=== PATIENT | female | born 1955 | race African-American/Black ===

== ENCOUNTER → 2016-07-02 | Outpatient (CLI) | payer BC ==
[~2016-07-02] MED LIST: ASPIRIN PO; CALC-25 PO; DILT60TA3 PO; LACT1CAP68 PO; LOSA50TA20 PO; MULTIVITAMIN; SIMV40TA5 PO; UMEC1DIS IH
[2016-07-02 08:06] LABS: HEMATOCRIT. 36.6 % (36.0-48.0); HEMOGLOBIN. 11.9 g/dL (12.0-16.0); MEAN CORPUSCULAR HEMOGLOBIN 29.2 pg (28.0-32.0); MEAN CORPUSCULAR HGB CONC 32.6 g/dL (31.0-37.0); MEAN CORPUSCULAR VOLUME 89.7 fL (81.0-99.0); PLATELET 230 x1000/uL (130-400); RED BLOOD CELL COUNT 4.08 mill/uL (4.2-5.4); RED CELL DISTRIBUTION WIDTH 15.3 % (11.6-14.6); WHITE BLOOD COUNT 4.3 x1000/uL (4.5-11.0)
[2016-07-02 08:07] LABS: DIFFERENTIAL COMMENT 1
[2016-07-02 08:31] LABS: ALANINE AMINOTRANSFERASE 27 IU/L (13-61); ALBUMIN 3.5 g/dL (3.4-5.0); ANION GAP 11; CALCIUM 9.1 mg/dL (8.5-10.1); CARBON DIOXIDE 29 mEq/L (21-32); CHLORIDE 105 mEq/L (98-107); HDL CHOLESTEROL 51 mg/dL (40-59); INDEX HEMOLYSI 1 (1-3); INDEX ICTERIC 1 (1-4); INDEX LIPEMIC 1 (1-3); LDL CHOLESTEROL 96 mg/dL (5-100); T4 FREE 1.09 ng/dL (0.76-1.46); THYROID STIMULATING HORMONE 0.78 mIU/mL (0.36-3.74); TRIGLYCERIDE 54 mg/dL (0-150); UREA NITROGEN BLOOD 14 mg/dL (7-21); eGFR > 60 mL/min (>60)
[2016-07-02 10:56] LABS: PLATELET ESTIMATE NORMAL
== END | disposition home or self-care (01) ==
LOC: LAB 07:41
PROVIDERS: ATTEND Internal Medicine Endocrinology, Diabetes & Metabolism
DX: I10 Essential (primary) hypertension (principal); E78.5 Hyperlipidemia, unspecified; R73.9 Hyperglycemia, unspecified; E66.9 Obesity, unspecified
CPT/HCPCS: 36415; 80053; 80061; 83036; 84439; 84443; 85025

== ENCOUNTER → 2016-10-09 | Outpatient (CLI) | payer BC ==
[2016-10-09 08:44] LABS: DIFFERENTIAL COMMENT 1; HEMATOCRIT. 38.2 % (36.0-48.0); HEMOGLOBIN. 12.4 g/dL (12.0-16.0); MEAN CORPUSCULAR HEMOGLOBIN 28.8 pg (28.0-32.0); MEAN CORPUSCULAR HGB CONC 32.5 g/dL (31.0-37.0); MEAN CORPUSCULAR VOLUME 88.7 fL (81.0-99.0); MEAN PLATELET VOLUME 8.3 fl (7.4-10.4); PLATELET 240 x1000/uL (130-400); RED BLOOD CELL COUNT 4.31 mill/uL (4.2-5.4); RED CELL DISTRIBUTION WIDTH 16.1 % (11.6-14.6); WHITE BLOOD COUNT 4.5 x1000/uL (4.5-11.0)
[2016-10-09 09:04] LABS: ALANINE AMINOTRANSFERASE 30 IU/L (13-61); ALBUMIN 3.6 g/dL (3.4-5.0); ANION GAP 7; CALCIUM 9.3 mg/dL (8.5-10.1); CARBON DIOXIDE 30 mEq/L (21-32); CHLORIDE 105 mEq/L (98-107); HDL CHOLESTEROL 62 mg/dL (40-59); INDEX HEMOLYSI 1 (1-3); INDEX ICTERIC 1 (1-4); INDEX LIPEMIC 1 (1-3); LDL CHOLESTEROL 82 mg/dL (5-100); T4 FREE 1.27 ng/dL (0.76-1.46); THYROID STIMULATING HORMONE 0.68 uIU/mL (0.36-3.74); TRIGLYCERIDE 53 mg/dL (0-150); UREA NITROGEN BLOOD 16 mg/dL (7-21); eGFR > 60 mL/min (>60)
[2016-10-09 10:20] LABS: PLATELET ESTIMATE NORMAL
[2016-10-09 10:21] LABS: ANISOCYTOSIS 1+
== END | disposition home or self-care (01) ==
LOC: LAB 08:21
PROVIDERS: ATTEND Internal Medicine Endocrinology, Diabetes & Metabolism
DX: I10 Essential (primary) hypertension (principal); R73.9 Hyperglycemia, unspecified; E78.5 Hyperlipidemia, unspecified; M19.90 Unspecified osteoarthritis, unspecified site; R76.0 Raised antibody titer
CPT/HCPCS: 36415; 80053; 80061; 83036; 84439; 84443; 85025; 85651

== ENCOUNTER → 2016-12-03 | Outpatient (CLI) | payer BC | END | disposition home or self-care (01) | LOC: US 07:56 | PROVIDERS: ATTEND Internal Medicine Endocrinology, Diabetes & Metabolism | DX: E04.1 Nontoxic single thyroid nodule (principal) | CPT/HCPCS: 76536 ==

== ENCOUNTER → 2016-12-09 | Outpatient (CLI) | payer BC | LOC: CARD 10:30 | PROVIDERS: ATTEND Specialist | DX: I11.9 Hypertensive heart disease without heart failure (principal); I47.1 Supraventricular tachycardia | CPT/HCPCS: 93306 ==

== ENCOUNTER → 2016-12-27 | Outpatient (CLI) | payer BC ==
[2016-12-27 08:05] LABS: HEMATOCRIT. 37.9 % (36.0-48.0); HEMOGLOBIN. 12.4 g/dL (12.0-16.0); MEAN CORPUSCULAR HEMOGLOBIN 28.5 pg (28.0-32.0); MEAN CORPUSCULAR VOLUME 87.2 fL (81.0-99.0); MEAN PLATELET VOLUME 8.3 fl (7.4-10.4); PLATELET 256 x1000/uL (130-400); RED BLOOD CELL COUNT 4.35 mill/uL (4.2-5.4); RED CELL DISTRIBUTION WIDTH 14.9 % (11.6-14.6)
[2016-12-27 08:59] LABS: CHLORIDE 105 mEq/L (98-107)
[2016-12-27 09:39] LABS: CARBON DIOXIDE 24 mEq/L (21-32)
[2016-12-27 20:57] LABS: PLATELET ESTIMATE NORMAL
[2016-12-31 19:07] LABS: CYC CITRULLINATED PEP IgG/IgA 6 units (0-19)
== END | disposition home or self-care (01) ==
LOC: LAB 07:30
PROVIDERS: ATTEND Internal Medicine
DX: I10 Essential (primary) hypertension (principal); E04.1 Nontoxic single thyroid nodule; E78.00 Pure hypercholesterolemia, unspecified; R76.0 Raised antibody titer; R73.9 Hyperglycemia, unspecified
CPT/HCPCS: 36415; 80053; 82507; 85025; 85651; 86200; 86431; 87186

== ENCOUNTER → 2017-01-06 | Outpatient (CLI) | payer BC | END | disposition home or self-care (01) | LOC: MAMMO 09:16 | PROVIDERS: ATTEND Internal Medicine Endocrinology, Diabetes & Metabolism | DX: N63 Unspecified lump in breast (principal); R22.2 Localized swelling, mass and lump, trunk | CPT/HCPCS: G0204 ==

== ENCOUNTER → 2017-01-20 | Outpatient (CLI) | payer BC | END | disposition home or self-care (01) | LOC: NM 07:30 | PROVIDERS: ATTEND Internal Medicine Endocrinology, Diabetes & Metabolism | DX: R92.8 Other abnormal and inconclusive findings on diagnostic imaging of breast (principal); E04.1 Nontoxic single thyroid nodule | CPT/HCPCS: 76641; 78014; A9516 ==

== ENCOUNTER → 2017-03-31 | Outpatient (CLI) | payer BC ==
[~2017-03-31] MED LIST changes: +DIATR MEGLU/DIATRIZOATE SOLN 120ML ONE; +IOHEXOL-300 100 ML BOTTLE ONE
== END | disposition home or self-care (01) ==
LOC: CT 09:42
PROVIDERS: ATTEND Internal Medicine Gastroenterology
DX: K57.32 Diverticulitis of large intestine without perforation or abscess without bleeding (principal); K76.0 Fatty (change of) liver, not elsewhere classified; I51.7 Cardiomegaly; J98.11 Atelectasis; R16.0 Hepatomegaly, not elsewhere classified; R14.0 Abdominal distension (gaseous)
CPT/HCPCS: 74177; Q9967; Q9963

== ENCOUNTER → 2017-05-04 | Outpatient (CLI) | payer BC ==
[~2017-05-04] MED LIST changes: -DIATR MEGLU/DIATRIZOATE SOLN 120ML ONE; -IOHEXOL-300 100 ML BOTTLE ONE
[2017-05-04 08:15] LABS: HEMATOCRIT. 33.1 % (36.0-48.0); HEMOGLOBIN. 10.7 g/dL (12.0-16.0); MEAN CORPUSCULAR HEMOGLOBIN 26.5 pg (28.0-32.0); MEAN CORPUSCULAR VOLUME 82.2 fL (81.0-99.0); MEAN PLATELET VOLUME 7.5 fl (7.4-10.4); PLATELET 413 x1000/uL (130-400); RED BLOOD CELL COUNT 4.02 mill/uL (4.2-5.4); RED CELL DISTRIBUTION WIDTH 16.4 % (11.6-14.6)
[2017-05-04 09:03] LABS: VITAMIN B12 SERUM 1640 pg/mL (211-911)
[2017-05-04 12:18] LABS: FERRITIN 51 ng/mL (10-291)
[2017-05-04 12:37] LABS: HEPATITIS B SURFACE AB 11.3 mIU/mL
[2017-05-04 12:55] LABS: HEPATITIS A AB IGM NEGATIVE (NEGATIVE)
[2017-05-04 13:14] LABS: FOLIC ACID (FOLATE) SERUM > 20.00 ng/mL (>5.38)
[2017-05-04 15:22] LABS: PLATELET ESTIMATE INCREASED
[2017-05-05 09:07] LABS: TRANSFERRIN 255 mg/dL (200-370)
[2017-05-05 13:11] LABS: HBSAG SCREEN Negative (Negative)
[2017-05-05 19:11] LABS: ANTI-NUCLEAR ANTIBODIES DIRECT Positive (Negative)
[2017-05-06 13:12] LABS: ACTIN (SMOOTH MUSCLE) ANTIBODY 38 Units (0-19)
== END | disposition home or self-care (01) ==
LOC: LAB 07:20
PROVIDERS: ATTEND Internal Medicine Gastroenterology
DX: I10 Essential (primary) hypertension (principal); K57.12 Diverticulitis of small intestine without perforation or abscess without bleeding
CPT/HCPCS: 36415; 80061; 82390; 82525; 82607; 82728; 82746; 83540; 83550; 84466; 85025; 85044; 86038; 86706; 86709; 86803; 87340

== ENCOUNTER → 2017-05-13 | Outpatient (CLI) | payer BC ==
[2017-05-13 09:34] LABS: HEMATOCRIT. 30.9 % (36.0-48.0); MEAN CORPUSCULAR HEMOGLOBIN 26.1 pg (28.0-32.0); MEAN CORPUSCULAR VOLUME 81.1 fL (81.0-99.0); MEAN PLATELET VOLUME 7.2 fl (7.4-10.4); PLATELET 459 x1000/uL (130-400); RED BLOOD CELL COUNT 3.82 mill/uL (4.2-5.4); RED CELL DISTRIBUTION WIDTH 16.2 % (11.6-14.6)
[2017-05-13 13:12] LABS: ATYPICAL LYMPHOCYTES 2; PLATELET ESTIMATE SLIGHTLY INCREASED
[2017-05-14 17:12] LABS: OVA & PARASITE EXAM Final report (.)
[2017-05-15 13:11] LABS: ACTIN (SMOOTH MUSCLE) ANTIBODY 37 Units (0-19); ANA IFA Negative (.)
[2017-05-15 17:12] LABS: OVA & PARASITE EXAM Final report (.)
== END | disposition home or self-care (01) ==
LOC: LAB 08:56
PROVIDERS: ATTEND Internal Medicine Gastroenterology
DX: K59.1 Functional diarrhea (principal); R10.84 Generalized abdominal pain; K57.30 Diverticulosis of large intestine without perforation or abscess without bleeding
CPT/HCPCS: 36415; 82977; 85025; 86256; 87177; 87209; 87493

== ENCOUNTER → 2017-06-01 | Outpatient (CLI) | payer BC ==
[2017-06-01 09:46] LABS: HEMATOCRIT. 29.8 % (36.0-48.0); HEMOGLOBIN. 9.4 g/dL (12.0-16.0); MEAN CORPUSCULAR VOLUME 79.3 fL (81.0-99.0); MEAN PLATELET VOLUME 6.9 fl (7.4-10.4); PLATELET 479 x1000/uL (130-400); RED BLOOD CELL COUNT 3.76 mill/uL (4.2-5.4); RED CELL DISTRIBUTION WIDTH 17.3 % (11.6-14.6)
[2017-06-01 10:48] LABS: CARBON DIOXIDE 27 mEq/L (21-32); CHLORIDE 105 mEq/L (98-107); HDL CHOLESTEROL 35 mg/dL (40-59)
[2017-06-01 10:59] LABS: LDL CHOLESTEROL 69 mg/dL (5-100)
[2017-06-01 21:22] LABS: PLATELET ESTIMATE INCREASED
[2017-06-04 13:12] LABS: ANTI-MYELOPEROXIDASE AB < 9.0 U/mL (0.0-9.0); ANTI-PROTEINASE 3 ABS 5.4 U/mL (0.0-3.5)
[2017-06-04 15:07] LABS: ATYPICAL pANCA <1:20 titer (Neg:<1:20)
[2017-06-05 10:12] LABS: ATYPICAL P-ANCA <1:20 titer (Neg:<1:20); CYTOPLASMIC C-ANCA <1:20 titer (Neg:<1:20); PERINUCLEAR P-ANCA <1:20 titer (Neg:<1:20)
[2017-06-05 13:12] LABS: SACCHAROMYCES CEREVISIAE IGG <20.0 Units (0.0-24.9); SACCHAROMYCES CEREVISIAE IGM 25.6 Units (0.0-24.9)
== END | disposition home or self-care (01) ==
LOC: LAB 09:15
PROVIDERS: ATTEND Internal Medicine Gastroenterology
DX: I10 Essential (primary) hypertension (principal); E04.1 Nontoxic single thyroid nodule; D50.9 Iron deficiency anemia, unspecified; K52.89 Other specified noninfective gastroenteritis and colitis; E78.5 Hyperlipidemia, unspecified; E87.5 Hyperkalemia
CPT/HCPCS: 36415; 80053; 80061; 82306; 82390; 82525; 83520; 84443; 85025; 85651; 86140; 86256; 86671

== ENCOUNTER → 2017-06-19 | Outpatient (CLI) | payer BC ==
[~2017-06-19] MED LIST changes: +ACET-2708 MT; +ASPI-1159 PO; +CALC-30 MT; +CALC-719 MT; +DILT120T2 MT; +FERR325T6 MT; +FERR325T6 PO; +GABA-529 MT; +LOSA50TA20 MT; +MESA0.37 MT; +MESA0.37 PO; +MULT-1146 MT; +PRED1TAB PO; +PROAIR HFA INH; +TRAM50TA3 MT; +VIT1CAPS47 PO; +VITA1CAP47 PO
[2017-06-19 10:35] LABS: BASOPHILS % 0.3 % (0.0-2.0); EOSINOPHILS % 0.5 % (0.0-5.0); HEMATOCRIT. 30.7 % (36.0-48.0); HEMOGLOBIN. 9.6 g/dL (12.0-16.0); LYMPHOCYTES % 7.4 % (20.0-50.0); MEAN CORPUSCULAR VOLUME 76.5 fL (81.0-99.0); MEAN PLATELET VOLUME 6.8 fl (7.4-10.4); MONOCYTES % 13.6 % (2.0-8.0); NEUTROPHILS % 78.2 % (40.0-76.0); PLATELET 397 x1000/uL (130-400); RED BLOOD CELL COUNT 4.01 mill/uL (4.2-5.4); RED CELL DISTRIBUTION WIDTH 17.6 % (11.6-14.6)
[2017-06-19 11:17] LABS: AMYLASE 47 IU/L (25-115); CHLORIDE 96 mEq/L (98-107)
== END | disposition home or self-care (01) ==
LOC: LAB 10:17
PROVIDERS: ATTEND Internal Medicine Gastroenterology
DX: R10.9 Unspecified abdominal pain (principal); R19.7 Diarrhea, unspecified
CPT/HCPCS: 36415; 82150; 83615; 85651; 86140

== ENCOUNTER → 2017-07-09 | Outpatient (CLI) | payer BC ==
[~2017-07-09] MED LIST changes: -ACET-2708 MT; -ASPI-1159 PO; -CALC-30 MT; -CALC-719 MT; -DILT120T2 MT; -FERR325T6 MT; -FERR325T6 PO; -GABA-529 MT; +GADOBENATE DIMEGLUMINE 529 MG/ML 10ML IV ONE; -LOSA50TA20 MT; -MESA0.37 MT; -MESA0.37 PO; -MULT-1146 MT; -PRED1TAB PO; -PROAIR HFA INH; -TRAM50TA3 MT; -VIT1CAPS47 PO; -VITA1CAP47 PO
== END | disposition home or self-care (01) ==
LOC: MRI 09:29
PROVIDERS: ATTEND Internal Medicine Endocrinology, Diabetes & Metabolism
DX: M48.02 Spinal stenosis, cervical region (principal)
CPT/HCPCS: 70553; 72156; A9577

== ENCOUNTER → 2017-09-16 | Outpatient (CLI) | payer BC ==
[~2017-09-16] MED LIST changes: -GADOBENATE DIMEGLUMINE 529 MG/ML 10ML IV ONE
[2017-09-17 10:09] LABS: RF PROFILE 14.9 IU/mL (0.0-13.9); VITAMIN D 25-OH 22.8 ng/mL (30.0-100.0)
== END | disposition home or self-care (01) ==
LOC: LAB 07:45
PROVIDERS: ATTEND Internal Medicine
DX: E11.9 Type 2 diabetes mellitus without complications (principal); E78.5 Hyperlipidemia, unspecified; I10 Essential (primary) hypertension; E55.9 Vitamin D deficiency, unspecified; R70.0 Elevated erythrocyte sedimentation rate
CPT/HCPCS: 36415; 82306; 85651; 86140; 86200; 86431

== ENCOUNTER → 2017-09-24 | Outpatient (CLI) | payer BC ==
[2017-09-24 08:04] LABS: KETONES URINE NEGATIVE (NEGATIVE); LEUKOCYTE ESTERASE URINE NEGATIVE (NEGATIVE); NITRITE URINE NEGATIVE (NEGATIVE); OCCULT BLOOD URINE NEGATIVE (NEGATIVE); PROTEIN URINE TRACE (NEGATIVE); SPECIFIC GRAVITY URINE 1.022 (1.005-1.030); UROBILINOGEN URINE 0.2 E.U./dL (0.2-1.0)
[2017-09-24 08:07] LABS: CLARITY URINE CLEAR (CLEAR); COLOR URINE YELLOW (YELLOW)
[2017-09-24 08:11] LABS: HEMATOCRIT. 30.1 % (36.0-48.0); HEMOGLOBIN. 9.4 g/dL (12.0-16.0); MEAN CORPUSCULAR VOLUME 73.9 fL (81.0-99.0); MEAN PLATELET VOLUME 6.4 fl (7.4-10.4); PLATELET 513 x1000/uL (130-400); RED BLOOD CELL COUNT 4.07 mill/uL (4.2-5.4); RED CELL DISTRIBUTION WIDTH 19.4 % (11.6-14.6)
[2017-09-24 08:35] LABS: CHLORIDE 97 mEq/L (98-107)
[2017-09-24 08:51] LABS: LDL CHOLESTEROL 54 mg/dL (5-100)
[2017-09-24 08:52] LABS: HDL CHOLESTEROL 44 mg/dL (40-59)
[2017-09-24 10:45] LABS: PLATELET ESTIMATE INCREASED
== END | disposition home or self-care (01) ==
LOC: LAB 07:30
PROVIDERS: ATTEND Internal Medicine Endocrinology, Diabetes & Metabolism
DX: E11.9 Type 2 diabetes mellitus without complications (principal); E78.5 Hyperlipidemia, unspecified; D64.9 Anemia, unspecified; R19.7 Diarrhea, unspecified; R63.4 Abnormal weight loss; R79.89 Other specified abnormal findings of blood chemistry
CPT/HCPCS: 36415; 80053; 80061; 81003; 82306; 83036; 84439; 84443; 85025; 87177; 87209; 87493

== ENCOUNTER 2017-10-08 18:18 | Inpatient (IN) | payer BC ==
[~2017-10-08] VITALS: Ht 160 cm; Wt 89.6 kg
[2017-10-08] MEDS ORDERED: SODIUM CHLORIDE 0.9% 1,000 ML IV ONE (18:49)
[2017-10-08 19:21] LABS: BASOPHILS % 0.3 % (0.0-2.0); EOSINOPHILS % 0.6 % (0.0-5.0); HEMATOCRIT. 27.4 % (36.0-48.0); HEMOGLOBIN. 8.7 g/dL (12.0-16.0); LYMPHOCYTES % 9.8 % (20.0-50.0); MEAN CORPUSCULAR HEMOGLOBIN 23.4 pg (28.0-32.0); MEAN CORPUSCULAR VOLUME 73.6 fL (81.0-99.0); MEAN PLATELET VOLUME 6.1 fl (7.4-10.4); MONOCYTES % 11.1 % (2.0-8.0); NEUTROPHILS % 78.2 % (40.0-76.0); PLATELET 495 x1000/uL (130-400); RED BLOOD CELL COUNT 3.73 mill/uL (4.2-5.4); RED CELL DISTRIBUTION WIDTH 19.6 % (11.6-14.6)
[2017-10-08 19:24] LABS: CHLORIDE 94 mEq/L (98-107)
[2017-10-08 19:27] LABS: INR 1.2; PROTHROMBIN TIME 12.1 sec (9.4-11.6)
[2017-10-08] MEDS ORDERED: FAMOTIDINE 20MG/2ML VIAL IV ONE (20:00)
[2017-10-08] MEDS ORDERED: ONDANSETRON HCL 4MG/2ML VIAL IV ONE (20:00)
[2017-10-08 22:25] VITALS: BP 102/59
[2017-10-08] MEDS ORDERED: MESA0.37 MT (22:45)
[2017-10-08] MEDS ORDERED: DILT120T2 MT (22:49)
[2017-10-08] MEDS ORDERED: ASPI-1159 PO (22:51)
[2017-10-08] MEDS ORDERED: GABA-529 MT (22:53)
[2017-10-08] MEDS ORDERED: ACET-2708 MT (22:54)
[2017-10-08] MEDS ORDERED: TRAM50TA3 MT (22:55)
[2017-10-08] MEDS ORDERED: CALC-30 MT (22:59)
[2017-10-08] MEDS ORDERED: VITA1CAP47 PO (22:59)
[2017-10-08] MEDS ORDERED: TRAMADOL 50MG TABLET PO PRN (23:00)
[2017-10-08] MEDS ORDERED: VIT1CAPS47 PO (23:01)
[2017-10-08] MEDS ORDERED: FERR325T6 PO (23:01)
[2017-10-08] MEDS ORDERED: PROAIR HFA INH (23:09)
[2017-10-08] MEDS ORDERED: SODIUM CHL 0.9% + KCL 20MEQ/L 1,000 ML IV SCH (23:30)
[2017-10-08] MEDS ORDERED: MAGNESIUM 2 G PREMIX 50 ML IV NR (23:45)
[2017-10-09] VITALS: BP 110/62
[2017-10-09] MEDS: SODIUM CHL 0.9% + KCL 20MEQ/L 1,000 ML IV SCH ×2 (00:36→13:56)
[2017-10-09] MEDS: MESALAMINE 400 MG CAPSULE.DR PO SCH ×5 (00:37→22:03)
[2017-10-09] MEDS: DILTIAZEM HCL 120MG CAPSULE SR 12HR PO SCH ×3 (00:37→22:09)
[2017-10-09] MEDS: ATORVASTATIN CALCIUM 10MG TABLET PO SCH ×2 (00:37→22:03)
[2017-10-09] MEDS: GABAPENTIN 100MG CAPSULE PO SCH ×4 (00:37→22:03)
[2017-10-09 04:00] VITALS: BP_SYST 102; BP_SYST 109; BP_DIAS 62
[2017-10-09 07:11] LABS: HEMATOCRIT. 24.5 % (36.0-48.0); HEMOGLOBIN. 7.7 g/dL (12.0-16.0); MEAN CORPUSCULAR HEMOGLOBIN 23.5 pg (28.0-32.0); MEAN CORPUSCULAR VOLUME 74.3 fL (81.0-99.0); PLATELET 414 x1000/uL (130-400); RED BLOOD CELL COUNT 3.29 mill/uL (4.2-5.4); RED CELL DISTRIBUTION WIDTH 19.9 % (11.6-14.6)
[2017-10-09 07:29] LABS: CHLORIDE 104 mEq/L (98-107)
[2017-10-09 07:47] LABS: PHOSPHORUS 3.9 mg/dL (2.5-4.9)
[2017-10-09 07:51] LABS: T4 FREE 1.27 ng/dL (0.76-1.46)
[2017-10-09 07:55] LABS: PREALBUMIN 6.8 mg/dL (20.0-40.0)
[2017-10-09 08:00] VITALS: BP_SYST 103; BP_SYST 104; BP_SYST 109; BP_DIAS 55; BP_DIAS 63; BP_DIAS 64
[2017-10-09] MEDS ORDERED: LOSARTAN POTASSIUM 25 MG TABLET PO SCH (09:00)
[2017-10-09] MEDS: FLUTICASONE/VILANTEROL 200-25 BLST.W.DEV ORI SCH (09:07)
[2017-10-09] MEDS: ACETAMINOPHEN 325MG TABLET PO PRN (09:25)
[2017-10-09 12:00] VITALS: BP 91/46
[2017-10-09 12:10] LABS: PLATELET ESTIMATE INCREASED
[2017-10-09] MEDS: METHYLPREDNISOLONE SOD SUCC 40 MG/ML VIAL IV SCH ×2 (13:56→22:03)
[2017-10-09] MEDS: LEVOFLOXACIN 500MG PREMIX 100 ML IV SCH (13:57)
[2017-10-09] MEDS: METRONIDAZOLE 500MG TABLET PO SCH ×2 (15:09→22:03)
[2017-10-09 16:00] VITALS: BP 95/54
[2017-10-09 17:54] LABS: FOLIC ACID (FOLATE) SERUM 13.7 ng/mL (>5.38)
[2017-10-09] MEDS: BLOOD SUGAR DIAGNOSTIC STRIP TEST SCH (18:00)
[2017-10-09 20:00] VITALS: BP_SYST 103; BP_SYST 107; BP_SYST 93; BP_DIAS 54; BP_DIAS 63; BP_DIAS 68
[2017-10-09 20:22] LABS: *AMPHETAMINES SCREEN URINE NEGATIVE (NEGATIVE); *BARBITURATES SCREEN URINE NEGATIVE (NEGATIVE); *BENZODIAZEPINES SCREEN URINE NEGATIVE (NEGATIVE); *COCAINE SCREEN URINE NEGATIVE (NEGATIVE); METHADONE URINE SCREEN NEGATIVE (NEGATIVE); OPIATES URINE SCREEN NEGATIVE (NEGATIVE); PHENCYCLIDINE URINE SCREEN NEGATIVE (NEGATIVE)
[2017-10-09 20:23] LABS: CANNABINOID URINE SCREEN NEGATIVE (NEGATIVE)
[2017-10-10] VITALS: BP 98/62
[2017-10-10 04:00] VITALS: BP 117/72
[2017-10-10 05:15] LABS: HEMATOCRIT. 26.2 % (36.0-48.0); HEMOGLOBIN. 8.3 g/dL (12.0-16.0); MEAN CORPUSCULAR HEMOGLOBIN 23.4 pg (28.0-32.0); MEAN CORPUSCULAR VOLUME 73.5 fL (81.0-99.0); PLATELET 493 x1000/uL (130-400); RED BLOOD CELL COUNT 3.56 mill/uL (4.2-5.4); RED CELL DISTRIBUTION WIDTH 20.1 % (11.6-14.6)
[2017-10-10 05:20] LABS: CHLORIDE 106 mEq/L (98-107)
[2017-10-10 05:34] LABS: LDL CHOLESTEROL 50 mg/dL (5-100); TOTAL IRON BINDING CAPACITY 164 ug/dL (250-450)
[2017-10-10 05:35] LABS: HDL CHOLESTEROL 43 mg/dL (40-59)
[2017-10-10 05:58] LABS: VITAMIN B12 SERUM 1521 pg/mL (211-911)
[2017-10-10] MEDS: GABAPENTIN 100MG CAPSULE PO SCH ×3 (06:56→21:43)
[2017-10-10] MEDS: METRONIDAZOLE 500MG TABLET PO SCH ×3 (06:56→21:43)
[2017-10-10 08:00] VITALS: BP 109/62
[2017-10-10] MEDS: DILTIAZEM HCL 120MG CAPSULE SR 12HR PO SCH ×2 (09:00→20:43)
[2017-10-10] MEDS: FLUTICASONE/VILANTEROL 200-25 BLST.W.DEV ORI SCH (09:58)
[2017-10-10] MEDS: MESALAMINE 400 MG CAPSULE.DR PO SCH ×4 (09:58→20:36)
[2017-10-10] MEDS: METHYLPREDNISOLONE SOD SUCC 40 MG/ML VIAL IV SCH ×2 (09:58→20:37)
[2017-10-10 11:01] LABS: PLATELET ESTIMATE INCREASED
[2017-10-10 12:00] VITALS: BP 100/67
[2017-10-10] MEDS: LEVOFLOXACIN 500MG PREMIX 100 ML IV SCH (12:02)
[2017-10-10] MEDS ORDERED: IRON SUCROSE COMPLEX 100 MG/5 ML ML IV SCH (12:45)
[2017-10-10] MEDS: SODIUM CHL 0.9% + KCL 20MEQ/L 1,000 ML IV SCH (14:57)
[2017-10-10 16:00] VITALS: BP 113/64
[2017-10-10] MEDS: BLOOD SUGAR DIAGNOSTIC STRIP TEST SCH (17:22)
[2017-10-10] MEDS ORDERED: IRON SUCROSE COMPLEX 200 MG in SODIUM CHLORIDE 0.9% 100 ML IV NR (18:00)
[2017-10-10 20:00] VITALS: BP_SYST 103; BP_SYST 111; BP_SYST 116; BP_DIAS 60; BP_DIAS 67; BP_DIAS 74
[2017-10-10] MEDS: ATORVASTATIN CALCIUM 10MG TABLET PO SCH (20:36)
[2017-10-10] MEDS: ACETAMINOPHEN 325MG TABLET PO PRN (23:23)
[2017-10-11] VITALS: BP 134/80
[2017-10-11 04:00] VITALS: BP 112/61
[2017-10-11] MEDS: GABAPENTIN 100MG CAPSULE PO SCH ×3 (05:17→21:07)
[2017-10-11] MEDS: METRONIDAZOLE 500MG TABLET PO SCH ×3 (05:17→21:07)
[2017-10-11 08:00] VITALS: BP_SYST 121; BP_SYST 130; BP_SYST 131; BP_DIAS 74; BP_DIAS 81; BP_DIAS 84
[2017-10-11] MEDS ORDERED: IRON SUCROSE COMPLEX 100 MG/5 ML ML IV SCH (09:00)
[2017-10-11] MEDS: FLUTICASONE/VILANTEROL 200-25 BLST.W.DEV ORI SCH (09:26)
[2017-10-11] MEDS: METHYLPREDNISOLONE SOD SUCC 40 MG/ML VIAL IV SCH ×2 (09:27→20:14)
[2017-10-11] MEDS: DILTIAZEM HCL 120MG CAPSULE SR 12HR PO SCH ×2 (09:27→20:15)
[2017-10-11] MEDS: MESALAMINE 400 MG CAPSULE.DR PO SCH ×4 (09:27→20:14)
[2017-10-11 12:00] VITALS: BP 131/75
[2017-10-11] MEDS: LEVOFLOXACIN 500MG TABLET PO SCH (12:13)
[2017-10-11] MEDS: SODIUM CHL 0.9% + KCL 20MEQ/L 1,000 ML IV SCH (12:13)
[2017-10-11 16:00] VITALS: BP_SYST 115; BP_SYST 131; BP_DIAS 71; BP_DIAS 75
[2017-10-11] MEDS: BLOOD SUGAR DIAGNOSTIC STRIP TEST SCH (17:27)
[2017-10-11] MEDS ORDERED: IRON SUCROSE COMPLEX 100 MG in SODIUM CHLORIDE 0.9% 100 ML IV NR (18:00)
[2017-10-11 20:00] VITALS: BP_SYST 116; BP_SYST 117; BP_SYST 119; BP_DIAS 68; BP_DIAS 77; BP_DIAS 81
[2017-10-11] MEDS: ATORVASTATIN CALCIUM 10MG TABLET PO SCH (20:15)
[2017-10-12] VITALS (7 sets, daily range): BP systolic 110–131; BP diastolic 57–89
[2017-10-12] MEDS: SODIUM CHL 0.9% + KCL 20MEQ/L 1,000 ML IV SCH (02:16)
[2017-10-12] MEDS: METRONIDAZOLE 500MG TABLET PO SCH ×3 (05:03→21:30)
[2017-10-12] MEDS: GABAPENTIN 100MG CAPSULE PO SCH ×3 (05:03→21:30)
[2017-10-12] MEDS: DILTIAZEM HCL 120MG CAPSULE SR 12HR PO SCH ×2 (09:00→21:31)
[2017-10-12] MEDS: FLUTICASONE/VILANTEROL 200-25 BLST.W.DEV ORI SCH (09:51)
[2017-10-12] MEDS: MESALAMINE 400 MG CAPSULE.DR PO SCH ×4 (09:51→21:32)
[2017-10-12] MEDS: METHYLPREDNISOLONE SOD SUCC 40 MG/ML VIAL IV SCH ×2 (09:51→21:32)
[2017-10-12] MEDS: LEVOFLOXACIN 500MG TABLET PO SCH (13:14)
[2017-10-12 13:28] LABS: HEMATOCRIT. 27.9 % (36.0-48.0); HEMOGLOBIN. 8.8 g/dL (12.0-16.0); MEAN CORPUSCULAR HEMOGLOBIN 23.4 pg (28.0-32.0); MEAN CORPUSCULAR VOLUME 74.1 fL (81.0-99.0); PLATELET 522 x1000/uL (130-400); RED BLOOD CELL COUNT 3.76 mill/uL (4.2-5.4); RED CELL DISTRIBUTION WIDTH 20.3 % (11.6-14.6)
[2017-10-12 13:55] LABS: NUCLEATED RED BLOOD CELLS 1 /100 WBC; PLATELET ESTIMATE INCREASED
[2017-10-12 14:02] LABS: CHLORIDE 109 mEq/L (98-107)
[2017-10-12 14:09] LABS: PHOSPHORUS 2.3 mg/dL (2.5-4.9)
[2017-10-12] MEDS: BLOOD SUGAR DIAGNOSTIC STRIP TEST SCH (17:51)
[2017-10-12] MEDS: ATORVASTATIN CALCIUM 10MG TABLET PO SCH (21:32)
[2017-10-13] VITALS: BP 116/67
[2017-10-13 04:00] VITALS: BP 117/64
[2017-10-13] MEDS: SODIUM CHL 0.9% + KCL 20MEQ/L 1,000 ML IV SCH (04:45)
[2017-10-13] MEDS: METRONIDAZOLE 500MG TABLET PO SCH (06:56)
[2017-10-13] MEDS: GABAPENTIN 100MG CAPSULE PO SCH (06:57)
[2017-10-13 08:34] LABS: CHLORIDE 107 mEq/L (98-107)
[2017-10-13 08:42] LABS: MEAN CORPUSCULAR HEMOGLOBIN 23.4 pg (28.0-32.0); MEAN CORPUSCULAR VOLUME 75.1 fL (81.0-99.0); MEAN PLATELET VOLUME 6.3 fl (7.4-10.4); PLATELET 554 x1000/uL (130-400); RED BLOOD CELL COUNT 3.87 mill/uL (4.2-5.4); RED CELL DISTRIBUTION WIDTH 20.4 % (11.6-14.6)
[2017-10-13] MEDS: METHYLPREDNISOLONE SOD SUCC 40 MG/ML VIAL IV SCH (09:50)
[2017-10-13] MEDS: FLUTICASONE/VILANTEROL 200-25 BLST.W.DEV ORI SCH (09:50)
[2017-10-13] MEDS: MESALAMINE 400 MG CAPSULE.DR PO SCH (09:51)
[2017-10-13] MEDS: LEVOFLOXACIN 500MG TABLET PO SCH (09:51)
[2017-10-13 09:52] LABS: NUCLEATED RED BLOOD CELLS 3 /100 WBC; PLATELET ESTIMATE INCREASED
[2017-10-13] MEDS: DILTIAZEM HCL 120MG CAPSULE SR 12HR PO SCH (10:05)
[2017-10-13 11:58] VITALS: BP 131/60
[2017-10-13 12:00] VITALS: BP 134/76
[2017-10-13 13:07] LABS: FECAL FAT NEUTRAL Normal (.); FECAL FAT TOTAL Normal (.)
[2017-10-14 04:16] LABS: OVA & PARASITE EXAM Final report (.)
[2017-10-16 13:11] LABS: ANTI-MYELOPEROXIDASE AB < 9.0 U/mL (0.0-9.0); ANTI-PROTEINASE 3 ABS < 3.5 U/mL (0.0-3.5)
[2017-10-16 15:07] LABS: ATYPICAL P-ANCA <1:20 titer (Neg:<1:20); CYTOPLASMIC C-ANCA <1:20 titer (Neg:<1:20); PERINUCLEAR P-ANCA <1:20 titer (Neg:<1:20)
== END 2017-10-13 13:15 | disposition home or self-care (01) | DRG 385 ==
LOC: EDBEDREQ 20:02 → ER 20:11 → 5WST 20:22 → ENRESERV 20:22
PROVIDERS: ADMIT Internal Medicine Endocrinology, Diabetes & Metabolism; ATTEND Internal Medicine Endocrinology, Diabetes & Metabolism
DX: K51.911 Ulcerative colitis, unspecified with rectal bleeding (principal); K57.33 Diverticulitis of large intestine without perforation or abscess with bleeding; E43 Unspecified severe protein-calorie malnutrition; L89.159 Pressure ulcer of sacral region, unspecified stage; D62 Acute posthemorrhagic anemia; E87.1 Hypo-osmolality and hyponatremia; K76.0 Fatty (change of) liver, not elsewhere classified; I47.1 Supraventricular tachycardia; E86.0 Dehydration; M48.02 Spinal stenosis, cervical region; M47.816 Spondylosis without myelopathy or radiculopathy, lumbar region; D50.9 Iron deficiency anemia, unspecified; E04.1 Nontoxic single thyroid nodule; D47.3 Essential (hemorrhagic) thrombocythemia; E55.9 Vitamin D deficiency, unspecified; E66.9 Obesity, unspecified; M17.0 Bilateral primary osteoarthritis of knee; E78.00 Pure hypercholesterolemia, unspecified; I44.1 Atrioventricular block, second degree; I10 Essential (primary) hypertension; J43.9 Emphysema, unspecified; Z80.42 Family history of malignant neoplasm of prostate; Z83.3 Family history of diabetes mellitus; Z82.49 Family history of ischemic heart disease and other diseases of the circulatory system; Z82.3 Family history of stroke; Z87.891 Personal history of nicotine dependence; Z82.0 Family history of epilepsy and other diseases of the nervous system; Z90.710 Acquired absence of both cervix and uterus; Z79.899 Other long term (current) drug therapy; Z79.82 Long term (current) use of aspirin; Z68.35 Body mass index [BMI] 35.0-35.9, adult
CPT/HCPCS: 36415; 71045; 74176; 80048; 80053; 80061; 80305; 82533; 82607; 82705; 82728; 82746; 82962; 83520; 83540; 83550; 83605; 83735; 83880; 83921; 84100; 84134; 84439; 84443; 84484; 85007; 85025; 85027; 85379; 85610; 85651; 86140; 86256; 87015; 87040; 87045; 87177; 87209; 87427; 87449; 87493; 89055; 93005; 93306; 93970; 96361; 96374; 96375; 99285; A6261; J1956; J2405; J2920; J3475; J3480; J3490; J7030; J7050

== ENCOUNTER → 2017-11-03 | Outpatient (CLI) | payer BC ==
[~2017-11-03] MED LIST changes: +ACET-2708 MT; +ASPI-1159 PO; -ASPIRIN PO; -CALC-25 PO; +CALC-30 MT; +DILT120T2 MT; -DILT60TA3 PO; +FERR325T6 PO; +GABA-529 MT; +MESA0.37 MT; -MULTIVITAMIN; +PROAIR HFA INH; +TRAM50TA3 MT; +VIT1CAPS47 PO; +VITA1CAP47 PO
[2017-11-03 10:31] LABS: HEMATOCRIT. 32.8 % (36.0-48.0); HEMOGLOBIN. 10.3 g/dL (12.0-16.0); MEAN CORPUSCULAR HEMOGLOBIN 25.2 pg (28.0-32.0); MEAN CORPUSCULAR VOLUME 80.4 fL (81.0-99.0); MEAN PLATELET VOLUME 7.1 fl (7.4-10.4); PLATELET 467 x1000/uL (130-400); RED BLOOD CELL COUNT 4.08 mill/uL (4.2-5.4)
[2017-11-03 11:21] LABS: TOTAL IRON BINDING CAPACITY 270 ug/dL (250-450)
[2017-11-03 11:39] LABS: CHLORIDE 103 mEq/L (98-107)
[2017-11-03 12:40] LABS: PLATELET ESTIMATE INCREASED
[2017-11-05 13:09] LABS: ANTI-MYELOPEROXIDASE AB < 9.0 U/mL (0.0-9.0); ANTI-PROTEINASE 3 ABS < 3.5 U/mL (0.0-3.5)
[2017-11-05 14:20] LABS: ATYPICAL P-ANCA <1:20 titer (Neg:<1:20); CYTOPLASMIC C-ANCA <1:20 titer (Neg:<1:20); PERINUCLEAR P-ANCA <1:20 titer (Neg:<1:20)
== END | disposition home or self-care (01) ==
LOC: LAB 09:53
PROVIDERS: ATTEND Internal Medicine Gastroenterology
DX: K51.919 Ulcerative colitis, unspecified with unspecified complications (principal); I10 Essential (primary) hypertension; E11.9 Type 2 diabetes mellitus without complications
CPT/HCPCS: 36415; 80053; 83520; 83540; 83550; 85025; 85651; 86140; 86256

== ENCOUNTER → 2018-01-15 | Outpatient (CLI) | payer BC ==
[2018-01-15 08:46] LABS: BASOPHILS % 0.4 % (0.0-2.0); EOSINOPHILS % 1.1 % (0.0-5.0); HEMATOCRIT. 29.1 % (36.0-48.0); HEMOGLOBIN. 9.2 g/dL (12.0-16.0); LYMPHOCYTES % 15.9 % (20.0-50.0); MEAN CORPUSCULAR HEMOGLOBIN 24.7 pg (28.0-32.0); MEAN CORPUSCULAR VOLUME 78.2 fL (81.0-99.0); MEAN PLATELET VOLUME 6.5 fl (7.4-10.4); MONOCYTES % 13.3 % (2.0-8.0); NEUTROPHILS % 69.3 % (40.0-76.0); PLATELET 527 x1000/uL (130-400); RED BLOOD CELL COUNT 3.72 mill/uL (4.2-5.4); RED CELL DISTRIBUTION WIDTH 19.8 % (11.6-14.6)
[2018-01-15 09:01] LABS: CHLORIDE 100 mEq/L (98-107)
[2018-01-15 09:11] LABS: TOTAL IRON BINDING CAPACITY 218 ug/dL (250-450)
[2018-01-15 10:12] LABS: VITAMIN B12 SERUM 801 pg/mL (211-911)
[2018-01-15 10:42] LABS: FERRITIN 117 ng/mL (10-291)
[2018-01-18 13:06] LABS: ANTI-MYELOPEROXIDASE AB < 9.0 U/mL (0.0-9.0); ANTI-PROTEINASE 3 ABS < 3.5 U/mL (0.0-3.5); SACCHAROMYCES CEREVISIAE IGG <20.0 Units (0.0-24.9); SACCHAROMYCES CEREVISIAE IGM <20.0 Units (0.0-24.9)
[2018-01-19 04:20] LABS: OVA & PARASITE EXAM Final report (.)
[2018-01-19 15:08] LABS: ATYPICAL P-ANCA <1:20 titer (Neg:<1:20); ATYPICAL pANCA <1:20 titer (Neg:<1:20); CYTOPLASMIC C-ANCA <1:20 titer (Neg:<1:20); PERINUCLEAR P-ANCA <1:20 titer (Neg:<1:20)
[2018-01-20 17:06] LABS: OVA & PARASITE EXAM Final report (.)
== END | disposition home or self-care (01) ==
LOC: LAB 07:27
PROVIDERS: ATTEND Internal Medicine Gastroenterology
DX: K51.919 Ulcerative colitis, unspecified with unspecified complications (principal); D50.9 Iron deficiency anemia, unspecified; I10 Essential (primary) hypertension; J44.9 Chronic obstructive pulmonary disease, unspecified; E78.00 Pure hypercholesterolemia, unspecified; Z90.49 Acquired absence of other specified parts of digestive tract
CPT/HCPCS: 36415; 80053; 82607; 82728; 83520; 83540; 83550; 85025; 85044; 85651; 86140; 86256; 86671; 87177; 87209; 89055

== ENCOUNTER 2018-02-16 04:17 | Inpatient (IN) | payer BC ==
[2018-02-16] VITALS (9 sets, daily range): BP systolic 98–119; BP diastolic 61–78
[~2018-02-16] VITALS: Ht 162.6 cm; Wt 88.9 kg
[2018-02-16] MEDS ORDERED: FAMOTIDINE 20MG/2ML VIAL IV STA (04:51)
[2018-02-16] MEDS ORDERED: SODIUM CHLORIDE 0.9% 1,000 ML IV ONE (04:51)
[2018-02-16] MEDS ORDERED: TRAMADOL 50MG TABLET PO ONE (05:15)
[2018-02-16] MEDS ORDERED: ACETAMINOPHEN 500MG TABLET PO ONE (05:15)
[2018-02-16 05:41] LABS: BASOPHILS % 0.2 % (0.0-2.0); EOSINOPHILS % 0.3 % (0.0-5.0); HEMATOCRIT. 27.9 % (36.0-48.0); HEMOGLOBIN. 8.5 g/dL (12.0-16.0); LYMPHOCYTES % 9.3 % (20.0-50.0); MEAN CORPUSCULAR HEMOGLOBIN 23.7 pg (28.0-32.0); MEAN CORPUSCULAR VOLUME 77.1 fL (81.0-99.0); MEAN PLATELET VOLUME 6.5 fl (7.4-10.4); MONOCYTES % 8.5 % (2.0-8.0); NEUTROPHILS % 81.7 % (40.0-76.0); PLATELET 538 x1000/uL (130-400); RED BLOOD CELL COUNT 3.61 mill/uL (4.2-5.4); RED CELL DISTRIBUTION WIDTH 21.3 % (11.6-14.6)
[2018-02-16 05:49] LABS: PROTHROMBIN TIME 10.3 sec (9.1-11.1)
[2018-02-16 05:57] LABS: CHLORIDE 105 mEq/L (98-107)
[2018-02-16] MEDS ORDERED: DILTIAZEM HCL 120MG CAPSULE CD 24HR PO ONE (06:00)
[2018-02-16] MEDS ORDERED: POTASSIUM CHLORIDE 20MEQ TABLET SR PO ONE (06:00)
[2018-02-16] MEDS ORDERED: FERR325T6 MT (09:42)
[2018-02-16] MEDS ORDERED: LOSA50TA20 MT (09:42)
[2018-02-16] MEDS ORDERED: CALC-719 MT (09:42)
[2018-02-16] MEDS ORDERED: MESA0.37 PO (09:42)
[2018-02-16] MEDS ORDERED: MORPHINE SULFATE 4 MG/ML CPJ (NOT FOR IM USE) IV PRN (09:45)
[2018-02-16] MEDS ORDERED: FLUTICASONE/VILANTEROL 200-25 BLST.W.DEV ORI SCH (09:45)
[2018-02-16] MEDS: FAMOTIDINE 20MG/2ML VIAL IV SCH ×3 (10:00→20:39)
[2018-02-16 10:24] LABS: BG BASE EXCESS -1.8 mmol/L (-2.0-2.0); BG CARBOXYHEMOGLOBIN 0.3 % (0.5-1.5); BG DEOXYHEMOGLOBIN 6.5 % (0.0-5.0); BG FRACTION INSPIRED OXYGEN 21; BG HCO3 ACT 22.3 mmol/L (22.0-26.0); BG METHEMOGLOBIN 0.2 % (0.0-1.5); BG OXYGEN SATURATION 93.5 % (92.0-98.5); BG PCO2 34.7 mmHg (35.0-45.0); BG PH 7.426 (7.350-7.450); BG SAMPLE SITE RIGHT RADIAL; BG TOTAL HEMOGLOBIN 7.7 g/dL (12.0-18.0); BG VENT MODE ROOM AIR
[2018-02-16] MEDS: DILTIAZEM HCL 120MG CAPSULE SR 12HR PO SCH ×3 (10:30→20:28)
[2018-02-16] MEDS: MESALAMINE 400 MG CAPSULE.DR PO SCH ×3 (11:49→16:59)
[2018-02-16] MEDS: BLOOD SUGAR DIAGNOSTIC STRIP TEST SCH ×3 (12:06→20:48)
[2018-02-16 12:14] LABS: CLARITY URINE CLEAR (CLEAR); COLOR URINE YELLOW (YELLOW); KETONES URINE NEGATIVE (NEGATIVE); LEUKOCYTE ESTERASE URINE 2+ (NEGATIVE); NITRITE URINE NEGATIVE (NEGATIVE); OCCULT BLOOD URINE 1+ (NEGATIVE); PH URINE 6.5 (4.5-8.0); PROTEIN URINE NEGATIVE (NEGATIVE); SPECIFIC GRAVITY URINE 1.009 (1.005-1.030); UROBILINOGEN URINE 0.2 E.U./dL (0.2-1.0)
[2018-02-16 12:29] LABS: HEMATOCRIT 24.5 % (36.0-48.0); HEMOGLOBIN 7.6 g/dL (12.0-16.0)
[2018-02-16] MEDS ORDERED: PRED1TAB PO (13:00)
[2018-02-16] MEDS ORDERED: MULT-1146 MT (13:00)
[2018-02-16] MEDS ORDERED: GABAPENTIN 100MG CAPSULE PO SCH (14:00)
[2018-02-16] MEDS ORDERED: INFLUENZA VIRUS VACCINE 0.5ML SYR IM ONE (14:45)
[2018-02-16] MEDS ORDERED: PNEUMOC 13-VAL CONJ-DIP CRM/PF 0.5 ML DISP.SYRIN IM ONE (14:45)
[2018-02-16] MEDS ORDERED: GABAPENTIN 100MG CAPSULE PO PRN (14:45)
[2018-02-16 16:47] LABS: FERRITIN 45 ng/mL (10-291)
[2018-02-16 16:57] LABS: VITAMIN B12 SERUM 762 pg/mL (211-911)
[2018-02-16 17:01] LABS: FOLIC ACID (FOLATE) SERUM > 20.00 ng/mL (>5.38)
[2018-02-16] MEDS: PIPERACILLIN/TAZ 3.375G PREMIX 50 ML IV SCH ×2 (17:33→20:39)
[2018-02-16] MEDS: METRONIDAZOLE 500 MG PREMIX 100 ML IV SCH ×2 (17:33→21:48)
[2018-02-16] MEDS ORDERED: DIATR MEGLU/DIATRIZOATE SOLN 120ML ONE (19:17)
[2018-02-16 20:36] LABS: HEMATOCRIT 29.3 % (36.0-48.0); HEMOGLOBIN 9.1 g/dL (12.0-16.0)
[2018-02-16] MEDS: ACETAMINOPHEN 325MG TABLET PO PRN (20:38)
[2018-02-16] MEDS: BUDESONIDE 0.5MG/2ML NEB HHN SCH (20:39)
[2018-02-16] MEDS: TRAMADOL 50MG TABLET PO PRN (20:39)
[2018-02-16] MEDS: ALBUTEROL (0.083%) 2.5MG/3ML NEB HHN SCH (20:41)
[2018-02-16] MEDS: SODIUM CHL 0.45% + KCL 20MEQ/L 1,000 ML IV SCH ×2 (20:41→23:48)
[2018-02-16] MEDS ORDERED: IOHEXOL-300 100 ML BOTTLE ONE (20:56)
[2018-02-17] VITALS: BP 97/59
[2018-02-17] MEDS: ALBUTEROL (0.083%) 2.5MG/3ML NEB HHN SCH ×2 (01:49→14:33)
[2018-02-17] MEDS: PIPERACILLIN/TAZ 3.375G PREMIX 50 ML IV SCH ×4 (02:49→21:12)
[2018-02-17 04:00] VITALS: BP 116/71
[2018-02-17] MEDS: METRONIDAZOLE 500 MG PREMIX 100 ML IV SCH ×3 (06:02→22:33)
[2018-02-17] MEDS: BLOOD SUGAR DIAGNOSTIC STRIP TEST SCH ×4 (06:25→21:00)
[2018-02-17 06:40] LABS: HEMATOCRIT. 26.4 % (36.0-48.0); HEMOGLOBIN. 8.5 g/dL (12.0-16.0); MEAN CORPUSCULAR HEMOGLOBIN 25.3 pg (28.0-32.0); PLATELET 443 x1000/uL (130-400); RED BLOOD CELL COUNT 3.38 mill/uL (4.2-5.4); RED CELL DISTRIBUTION WIDTH 22.7 % (11.6-14.6)
[2018-02-17 07:48] LABS: CHLORIDE 107 mEq/L (98-107)
[2018-02-17 08:00] VITALS: BP 90/62
[2018-02-17] MEDS: DILTIAZEM HCL 120MG CAPSULE SR 12HR PO SCH ×2 (09:00→21:16)
[2018-02-17] MEDS: IPRATROPIUM/ALBUTEROL 0.5-3(2.5)MG/3ML NEB HHN PRN ×2 (09:02→20:34)
[2018-02-17] MEDS: BUDESONIDE 0.5MG/2ML NEB HHN SCH ×2 (09:02→20:34)
[2018-02-17] MEDS: MESALAMINE 400 MG CAPSULE.DR PO SCH ×3 (09:41→17:29)
[2018-02-17] MEDS: FAMOTIDINE 20MG/2ML VIAL IV SCH ×2 (09:41→21:18)
[2018-02-17 10:06] LABS: PLATELET ESTIMATE SLIGHTLY INCREASED
[2018-02-17 12:00] VITALS: BP 106/66
[2018-02-17] MEDS: SIMETHICONE 80MG TABLET CHEW PO PRN (12:13)
[2018-02-17 13:01] LABS: HEMATOCRIT 28.4 % (36.0-48.0)
[2018-02-17] MEDS: METHYLPREDNISOLONE SOD SUCC 40 MG/ML VIAL IV SCH ×2 (15:06→21:12)
[2018-02-17] MEDS ORDERED: MAGNESIUM 2 G PREMIX 50 ML IV NR (15:30)
[2018-02-17 16:00] VITALS: BP 117/72
[2018-02-17] MEDS: ACETAMINOPHEN 325MG TABLET PO PRN (16:16)
[2018-02-17] MEDS: TRAMADOL 50MG TABLET PO PRN (16:18)
[2018-02-17] MEDS: FERROUS SULFATE 325MG TABLET PO SCH (17:29)
[2018-02-17 18:58] LABS: HEMATOCRIT 29.4 % (36.0-48.0); HEMOGLOBIN 9.2 g/dL (12.0-16.0)
[2018-02-17 19:22] VITALS: BP 118/75
[2018-02-17] MEDS: ASCORBIC ACID 250 MG TABLET PO SCH (21:13)
[2018-02-18] VITALS (8 sets, daily range): BP systolic 97–143; BP diastolic 55–87
[2018-02-18 01:23] LABS: HEMATOCRIT 28.9 % (36.0-48.0); HEMOGLOBIN 9.2 g/dL (12.0-16.0)
[2018-02-18] MEDS: PIPERACILLIN/TAZ 3.375G PREMIX 50 ML IV SCH ×4 (02:13→21:03)
[2018-02-18] MEDS: ACETAMINOPHEN 325MG TABLET PO PRN (02:20)
[2018-02-18] MEDS: TRAMADOL 50MG TABLET PO PRN (02:21)
[2018-02-18] MEDS: IPRATROPIUM/ALBUTEROL 0.5-3(2.5)MG/3ML NEB HHN PRN (02:28)
[2018-02-18] MEDS: METRONIDAZOLE 500 MG PREMIX 100 ML IV SCH ×2 (05:38→13:35)
[2018-02-18] MEDS: SIMETHICONE 80MG TABLET CHEW PO PRN (05:46)
[2018-02-18] MEDS: BLOOD SUGAR DIAGNOSTIC STRIP TEST SCH ×4 (07:20→21:00)
[2018-02-18 07:34] LABS: HEMATOCRIT. 29.9 % (36.0-48.0); HEMOGLOBIN. 9.5 g/dL (12.0-16.0); MEAN CORPUSCULAR VOLUME 78.4 fL (81.0-99.0); MEAN PLATELET VOLUME 6.7 fl (7.4-10.4); PLATELET 531 x1000/uL (130-400); RED BLOOD CELL COUNT 3.82 mill/uL (4.2-5.4); RED CELL DISTRIBUTION WIDTH 24.6 % (11.6-14.6)
[2018-02-18] MEDS: BUDESONIDE 0.5MG/2ML NEB HHN SCH ×2 (07:41→20:07)
[2018-02-18] MEDS: ALBUTEROL (0.083%) 2.5MG/3ML NEB HHN SCH ×3 (07:41→20:07)
[2018-02-18 08:07] LABS: CHLORIDE 107 mEq/L (98-107)
[2018-02-18] MEDS: MESALAMINE 400 MG CAPSULE.DR PO SCH ×3 (08:49→17:55)
[2018-02-18] MEDS: ASCORBIC ACID 250 MG TABLET PO SCH ×2 (08:49→21:03)
[2018-02-18] MEDS: FERROUS SULFATE 325MG TABLET PO SCH ×2 (08:49→17:56)
[2018-02-18] MEDS: METHYLPREDNISOLONE SOD SUCC 40 MG/ML VIAL IV SCH ×2 (08:50→21:01)
[2018-02-18] MEDS: FAMOTIDINE 20MG/2ML VIAL IV SCH ×2 (08:50→21:01)
[2018-02-18 09:54] LABS: PLATELET ESTIMATE INCREASED
[2018-02-18 12:34] LABS: HEMOGLOBIN 8.9 g/dL (12.0-16.0)
[2018-02-18] MEDS: GABAPENTIN 100MG CAPSULE PO SCH ×2 (13:35→17:55)
[2018-02-18] MEDS: DILTIAZEM HCL 120MG CAPSULE SR 12HR PO SCH ×2 (13:53→21:06)
[2018-02-18] MEDS ORDERED: POTASSIUM CHLORIDE 20MEQ TABLET SR PO NR (15:30)
[2018-02-18] MEDS: SODIUM CHLORIDE 0.9% 1,000 ML IV SCH (18:00)
[2018-02-18 19:44] LABS: HEMOGLOBIN 9.2 g/dL (12.0-16.0)
[2018-02-19 00:06] VITALS: BP 114/73
[2018-02-19] MEDS: METRONIDAZOLE 500 MG PREMIX 100 ML IV SCH ×2 (00:52→05:54)
[2018-02-19] MEDS: ALBUTEROL (0.083%) 2.5MG/3ML NEB HHN SCH ×4 (02:06→20:04)
[2018-02-19] MEDS: PIPERACILLIN/TAZ 3.375G PREMIX 50 ML IV SCH ×4 (02:28→21:29)
[2018-02-19 04:17] LABS: OVA & PARASITE EXAM Final report (.)
[2018-02-19] MEDS: SODIUM CHLORIDE 0.9% 1,000 ML IV SCH (05:50)
[2018-02-19] MEDS: BLOOD SUGAR DIAGNOSTIC STRIP TEST SCH ×3 (06:22→17:20)
[2018-02-19 07:27] LABS: BASOPHILS % 0.1 % (0.0-2.0); HEMATOCRIT. 26.5 % (36.0-48.0); HEMOGLOBIN. 8.4 g/dL (12.0-16.0); LYMPHOCYTES % 14.7 % (20.0-50.0); MEAN CORPUSCULAR HEMOGLOBIN 25.2 pg (28.0-32.0); MEAN CORPUSCULAR VOLUME 79.6 fL (81.0-99.0); MEAN PLATELET VOLUME 6.6 fl (7.4-10.4); MONOCYTES % 10.1 % (2.0-8.0); NEUTROPHILS % 75.1 % (40.0-76.0); PLATELET 484 x1000/uL (130-400); RED BLOOD CELL COUNT 3.33 mill/uL (4.2-5.4)
[2018-02-19] MEDS: BUDESONIDE 0.5MG/2ML NEB HHN SCH ×2 (07:36→20:05)
[2018-02-19 08:08] LABS: CHLORIDE 111 mEq/L (98-107)
[2018-02-19] MEDS: ACETAMINOPHEN 325MG TABLET PO PRN (08:53)
[2018-02-19] MEDS: TRAMADOL 50MG TABLET PO PRN (08:53)
[2018-02-19] MEDS: METHYLPREDNISOLONE SOD SUCC 40 MG/ML VIAL IV SCH ×2 (08:55→21:30)
[2018-02-19] MEDS: FAMOTIDINE 20MG/2ML VIAL IV SCH ×2 (08:55→21:31)
[2018-02-19] MEDS: FERROUS SULFATE 325MG TABLET PO SCH ×2 (08:56→17:10)
[2018-02-19] MEDS: MESALAMINE 400 MG CAPSULE.DR PO SCH ×3 (08:56→17:10)
[2018-02-19] MEDS: GABAPENTIN 100MG CAPSULE PO SCH ×3 (08:56→17:10)
[2018-02-19] MEDS: ASCORBIC ACID 250 MG TABLET PO SCH ×2 (08:56→21:34)
[2018-02-19 10:11] LABS: PLATELET ESTIMATE SLIGHTLY INCREASED
[2018-02-19 12:00] VITALS: BP 131/76
[2018-02-19 13:10] LABS: FECAL FAT NEUTRAL Normal (.); FECAL FAT TOTAL Normal (.)
[2018-02-19] MEDS: DILTIAZEM HCL 120MG CAPSULE CD 24HR PO SCH ×2 (13:20→21:33)
[2018-02-19 16:00] VITALS: BP 121/76
[2018-02-19 20:24] VITALS: BP 112/66
[2018-02-19 23:47] VITALS: BP 119/62
[2018-02-20] MEDS: ALBUTEROL (0.083%) 2.5MG/3ML NEB HHN SCH ×3 (00:44→19:42)
[2018-02-20 04:00] VITALS: BP 115/69
[2018-02-20] MEDS: SIMETHICONE 80MG TABLET CHEW PO PRN (05:10)
[2018-02-20] MEDS: PIPERACILLIN/TAZ 3.375G PREMIX 50 ML IV SCH ×2 (05:12→10:24)
[2018-02-20] MEDS: BLOOD SUGAR DIAGNOSTIC STRIP TEST SCH ×5 (06:52→21:07)
[2018-02-20] MEDS: ACETAMINOPHEN 325MG TABLET PO PRN (07:03)
[2018-02-20] MEDS: TRAMADOL 50MG TABLET PO PRN (07:05)
[2018-02-20] MEDS: BUDESONIDE 0.5MG/2ML NEB HHN SCH ×2 (07:34→19:42)
[2018-02-20 07:55] LABS: HEMATOCRIT. 30.8 % (36.0-48.0); HEMOGLOBIN. 9.4 g/dL (12.0-16.0); MEAN CORPUSCULAR HEMOGLOBIN 24.8 pg (28.0-32.0); MEAN CORPUSCULAR VOLUME 80.9 fL (81.0-99.0); PLATELET 579 x1000/uL (130-400); RED CELL DISTRIBUTION WIDTH 25.7 % (11.6-14.6)
[2018-02-20 08:00] VITALS: BP 126/76
[2018-02-20 09:13] LABS: CHLORIDE 106 mEq/L (98-107)
[2018-02-20 09:29] LABS: PHOSPHORUS 3.1 mg/dL (2.5-4.9)
[2018-02-20] MEDS: MESALAMINE 400 MG CAPSULE.DR PO SCH ×3 (10:23→17:15)
[2018-02-20] MEDS: FERROUS SULFATE 325MG TABLET PO SCH (10:23)
[2018-02-20] MEDS: ASCORBIC ACID 250 MG TABLET PO SCH (10:23)
[2018-02-20] MEDS: FAMOTIDINE 20MG/2ML VIAL IV SCH ×2 (10:24→21:07)
[2018-02-20] MEDS: METHYLPREDNISOLONE SOD SUCC 40 MG/ML VIAL IV SCH ×2 (10:24→21:07)
[2018-02-20] MEDS: GABAPENTIN 100MG CAPSULE PO SCH ×3 (10:24→17:15)
[2018-02-20] MEDS: DILTIAZEM HCL 120MG CAPSULE CD 24HR PO SCH ×2 (10:25→21:07)
[2018-02-20 12:00] VITALS: BP 135/79
[2018-02-20] MEDS: SODIUM CHLORIDE 0.9% 1,000 ML IV SCH (12:59)
[2018-02-20] MEDS: IPRATROPIUM/ALBUTEROL 0.5-3(2.5)MG/3ML NEB HHN PRN (14:11)
[2018-02-20 16:00] VITALS: BP 132/76
[2018-02-20 20:00] VITALS: BP 120/62
[2018-02-21] MEDS: ALBUTEROL (0.083%) 2.5MG/3ML NEB HHN SCH ×2 (02:26→08:20)
[2018-02-21 04:00] VITALS: BP 133/77
[2018-02-21 06:36] LABS: HEMATOCRIT. 27.7 % (36.0-48.0); HEMOGLOBIN. 8.6 g/dL (12.0-16.0); MEAN CORPUSCULAR HEMOGLOBIN 24.7 pg (28.0-32.0); MEAN CORPUSCULAR VOLUME 79.7 fL (81.0-99.0); PLATELET 475 x1000/uL (130-400); RED BLOOD CELL COUNT 3.48 mill/uL (4.2-5.4)
[2018-02-21 06:51] LABS: CHLORIDE 109 mEq/L (98-107)
[2018-02-21] MEDS: ACETAMINOPHEN 325MG TABLET PO PRN (07:40)
[2018-02-21] MEDS: TRAMADOL 50MG TABLET PO PRN (07:40)
[2018-02-21] MEDS: BLOOD SUGAR DIAGNOSTIC STRIP TEST SCH ×2 (07:46→12:20)
[2018-02-21 08:00] VITALS: BP 121/74
[2018-02-21] MEDS: BUDESONIDE 0.5MG/2ML NEB HHN SCH (08:25)
[2018-02-21] MEDS: IPRATROPIUM/ALBUTEROL 0.5-3(2.5)MG/3ML NEB HHN PRN (08:42)
[2018-02-21] MEDS: GABAPENTIN 100MG CAPSULE PO SCH ×3 (09:15→16:49)
[2018-02-21] MEDS: MESALAMINE 400 MG CAPSULE.DR PO SCH ×3 (09:16→16:49)
[2018-02-21] MEDS: DILTIAZEM HCL 120MG CAPSULE CD 24HR PO SCH (09:16)
[2018-02-21] MEDS: FAMOTIDINE 20MG/2ML VIAL IV SCH (09:17)
[2018-02-21] MEDS: METHYLPREDNISOLONE SOD SUCC 40 MG/ML VIAL IV SCH (09:17)
[2018-02-21 11:33] LABS: PLATELET ESTIMATE INCREASED
[2018-02-21 12:00] VITALS: BP 118/76
[2018-02-21 16:00] VITALS: BP 110/78
[2018-02-21 16:52] VITALS: BP 110/78
[2018-02-21 17:04] LABS: PLATELET ESTIMATE SLIGHTLY INCREASED
== END 2018-02-21 17:28 | disposition home or self-care (01) | DRG 385 ==
LOC: ER 04:17 → 6WST 05:51 → EDBEDREQTM 05:53 → EDBEDREQ 05:53 → ENRESERV 06:55
PROVIDERS: ADMIT Internal Medicine Endocrinology, Diabetes & Metabolism; ATTEND Internal Medicine Endocrinology, Diabetes & Metabolism
PROC: 30233N1 Transfusion of Nonautologous Red Blood Cells into Peripheral Vein, Percutaneous Approach (ICD-10-PCS; principal; 2018-02-16)
DX: K51.911 Ulcerative colitis, unspecified with rectal bleeding (principal); K57.33 Diverticulitis of large intestine without perforation or abscess with bleeding; E46 Unspecified protein-calorie malnutrition; I47.1 Supraventricular tachycardia; N39.0 Urinary tract infection, site not specified; D50.0 Iron deficiency anemia secondary to blood loss (chronic); E04.1 Nontoxic single thyroid nodule; E66.9 Obesity, unspecified; E78.00 Pure hypercholesterolemia, unspecified; E78.5 Hyperlipidemia, unspecified; E87.6 Hypokalemia; I10 Essential (primary) hypertension; D47.3 Essential (hemorrhagic) thrombocythemia; I95.9 Hypotension, unspecified; K76.89 Other specified diseases of liver; M17.0 Bilateral primary osteoarthritis of knee; M54.9 Dorsalgia, unspecified; J43.9 Emphysema, unspecified; E11.42 Type 2 diabetes mellitus with diabetic polyneuropathy; M48.02 Spinal stenosis, cervical region; M48.061 Spinal stenosis, lumbar region without neurogenic claudication; D72.819 Decreased white blood cell count, unspecified; F32.9 Major depressive disorder, single episode, unspecified; G89.29 Other chronic pain; Z80.42 Family history of malignant neoplasm of prostate; Z82.0 Family history of epilepsy and other diseases of the nervous system; Z82.3 Family history of stroke; Z82.49 Family history of ischemic heart disease and other diseases of the circulatory system; Z83.3 Family history of diabetes mellitus; Z87.891 Personal history of nicotine dependence; Z90.710 Acquired absence of both cervix and uterus; Z68.33 Body mass index [BMI] 33.0-33.9, adult; Z79.82 Long term (current) use of aspirin; Z79.899 Other long term (current) drug therapy
CPT/HCPCS: 36415; 36600; 71045; 74177; 80048; 80053; 81003; 82270; 82375; 82607; 82705; 82728; 82746; 82805; 82962; 83540; 83550; 83605; 83690; 83735; 84100; 84134; 84443; 84484; 85007; 85014; 85018; 85025; 85027; 85379; 85610; 85651; 86140; 86850; 86900; 86920; 87015; 87040; 87045; 87086; 87177; 87209; 87427; 87449; 87493; 89055; 93005; 93970; 94640; 96361; 96374; 99285; J2543; J2920; J3475; J3480; J3490; J7030; J7050; J7060; J7611; J7620; J7626; P9016; Q9963; Q9967

== ENCOUNTER → 2018-02-24 | Outpatient (CLI) | payer BC ==
[~2018-02-24] MED LIST changes: -CALC-30 MT; +CALC-719 MT; +FERR325T6 MT; -FERR325T6 PO; +LOSA50TA20 MT; -LOSA50TA20 PO; -MESA0.37 MT; +MESA0.37 PO; +MULT-1146 MT; +PRED1TAB PO; -PROAIR HFA INH; -VIT1CAPS47 PO
[2018-02-24 15:54] LABS: CHLORIDE 104 mEq/L (98-107)
[2018-02-24 15:56] LABS: HEMATOCRIT. 29.1 % (36.0-48.0); HEMOGLOBIN. 9.2 g/dL (12.0-16.0); MEAN CORPUSCULAR VOLUME 79.3 fL (81.0-99.0); MEAN PLATELET VOLUME 6.8 fl (7.4-10.4); PLATELET 414 x1000/uL (130-400); RED BLOOD CELL COUNT 3.67 mill/uL (4.2-5.4)
[2018-02-24 16:29] LABS: PLATELET ESTIMATE INCREASED
== END | disposition home or self-care (01) ==
LOC: LAB 15:22
PROVIDERS: ATTEND Internal Medicine Gastroenterology
DX: K51.80 Other ulcerative colitis without complications (principal); I10 Essential (primary) hypertension; E11.9 Type 2 diabetes mellitus without complications
CPT/HCPCS: 36415; 80053; 85025; 85651; 86140

== ENCOUNTER → 2018-04-13 | Outpatient (CLI) | payer BC ==
[2018-04-13 11:11] LABS: BASOPHILS % 0.6 % (0.0-2.0); EOSINOPHILS % 1.8 % (0.0-5.0); HEMATOCRIT. 36.6 % (36.0-48.0); HEMOGLOBIN. 11.7 g/dL (12.0-16.0); LYMPHOCYTES % 21.4 % (20.0-50.0); MEAN CORPUSCULAR HEMOGLOBIN 28.6 pg (28.0-32.0); MEAN CORPUSCULAR VOLUME 89.3 fL (81.0-99.0); MEAN PLATELET VOLUME 7.6 fl (7.4-10.4); MONOCYTES % 11.9 % (2.0-8.0); NEUTROPHILS % 64.3 % (40.0-76.0); PLATELET 344 x1000/uL (130-400); RED CELL DISTRIBUTION WIDTH 19.4 % (11.6-14.6)
[2018-04-13 11:25] LABS: CHLORIDE 108 mEq/L (98-107)
[2018-04-13 11:31] LABS: TOTAL IRON BINDING CAPACITY 316 ug/dL (250-450)
[2018-04-13 12:19] LABS: HEPATITIS B SURFACE AB 4.8 mIU/mL
[2018-04-13 12:24] LABS: FOLIC ACID (FOLATE) SERUM >20 ng/mL ng/mL (>5.38)
[2018-04-13 12:29] LABS: HEPATITIS B SURFACE ANTIGEN NEGATIVE
[2018-04-13 12:35] LABS: VITAMIN B12 SERUM 528 pg/mL (211-911)
[2018-04-14 09:06] LABS: HEPATITIS A ANTIBODY TOTAL Negative (Negative)
[2018-04-15 09:06] LABS: ANTI-NUCLEAR ANTIBODIES DIRECT Negative (Negative)
[2018-04-16 14:20] LABS: ACTIN (SMOOTH MUSCLE) ANTIBODY 13 Units (0-19)
== END | disposition home or self-care (01) ==
LOC: LAB 10:23
PROVIDERS: ATTEND Internal Medicine Gastroenterology
DX: K51.80 Other ulcerative colitis without complications (principal)
CPT/HCPCS: 36415; 82607; 82746; 83540; 83550; 85044; 85651; 86038; 86140; 86706; 86708; 86803; 87340

== ENCOUNTER → 2018-05-26 | Outpatient (CLI) | payer BC ==
[2018-05-26 09:16] LABS: BASOPHILS % 0.6 % (0.0-2.0); EOSINOPHILS % 2.8 % (0.0-5.0); HEMATOCRIT. 41.3 % (36.0-48.0); HEMOGLOBIN. 13.4 g/dL (12.0-16.0); LYMPHOCYTES % 28.6 % (20.0-50.0); MEAN CORPUSCULAR HEMOGLOBIN 28.6 pg (28.0-32.0); MEAN CORPUSCULAR VOLUME 88.3 fL (81.0-99.0); MONOCYTES % 11.8 % (2.0-8.0); NEUTROPHILS % 56.2 % (40.0-76.0); PLATELET 297 x1000/uL (130-400); RED BLOOD CELL COUNT 4.68 mill/uL (4.2-5.4); RED CELL DISTRIBUTION WIDTH 15.2 % (11.6-14.6)
[2018-05-26 09:26] LABS: TOTAL IRON BINDING CAPACITY 370 ug/dL (250-450)
== END | disposition home or self-care (01) ==
LOC: LAB 07:44
PROVIDERS: ATTEND Internal Medicine Gastroenterology
DX: K57.30 Diverticulosis of large intestine without perforation or abscess without bleeding (principal)
CPT/HCPCS: 36415; 82728; 83540; 83550; 85044

== ENCOUNTER → 2018-05-26 | Outpatient (CLI) | payer BC ==
[2018-05-26 09:15] LABS: CHLORIDE 105 mEq/L (98-107)
[2018-05-26 09:21] LABS: BASOPHILS % 0.6 % (0.0-2.0); EOSINOPHILS % 2.8 % (0.0-5.0); HEMATOCRIT. 41.3 % (36.0-48.0); HEMOGLOBIN. 13.4 g/dL (12.0-16.0); LYMPHOCYTES % 28.6 % (20.0-50.0); MEAN CORPUSCULAR HEMOGLOBIN 28.6 pg (28.0-32.0); MEAN CORPUSCULAR VOLUME 88.3 fL (81.0-99.0); MONOCYTES % 11.8 % (2.0-8.0); NEUTROPHILS % 56.2 % (40.0-76.0); PLATELET 297 x1000/uL (130-400); RED BLOOD CELL COUNT 4.68 mill/uL (4.2-5.4); RED CELL DISTRIBUTION WIDTH 15.2 % (11.6-14.6)
[2018-05-26 09:25] LABS: C REACTIVE PROTEIN QUANT 4.8 mg/L (0.0-3.0)
== END | disposition home or self-care (01) ==
LOC: LAB 07:41
PROVIDERS: ATTEND Internal Medicine
DX: M19.042 Primary osteoarthritis, left hand (principal); M19.041 Primary osteoarthritis, right hand; R76.0 Raised antibody titer
CPT/HCPCS: 36415; 73130; 85651; 86140; 86200; 86430

== ENCOUNTER → 2018-08-13 | Outpatient (CLI) | payer BC ==
[2018-08-13 08:23] LABS: BASOPHILS % 0.8 % (0.0-2.0); EOSINOPHILS % 2.2 % (0.0-5.0); HEMATOCRIT. 38.5 % (36.0-48.0); HEMOGLOBIN. 12.8 g/dL (12.0-16.0); LYMPHOCYTES % 26.7 % (20.0-50.0); MEAN CORPUSCULAR HEMOGLOBIN 29.5 pg (28.0-32.0); MEAN CORPUSCULAR VOLUME 88.8 fL (81.0-99.0); MEAN PLATELET VOLUME 7.9 fl (7.4-10.4); MONOCYTES % 11.8 % (2.0-8.0); NEUTROPHILS % 58.5 % (40.0-76.0); PLATELET 258 x1000/uL (130-400); RED BLOOD CELL COUNT 4.34 mill/uL (4.2-5.4); RED CELL DISTRIBUTION WIDTH 16.5 % (11.6-14.6)
[2018-08-13 09:03] LABS: CHLORIDE 107 mEq/L (98-107)
[2018-08-13 09:08] LABS: TOTAL IRON BINDING CAPACITY 325 ug/dL (250-450)
[2018-08-13 09:45] LABS: FOLIC ACID (FOLATE) SERUM >20 ng/mL ng/mL (>5.38)
[2018-08-13 09:57] LABS: VITAMIN B12 SERUM 748 pg/mL (211-911)
[2018-08-13 11:38] LABS: FERRITIN 68 ng/mL (10-291)
[2018-08-16 13:06] LABS: ANTI-MYELOPEROXIDASE AB < 9.0 U/mL (0.0-9.0); ANTI-PROTEINASE 3 ABS < 3.5 U/mL (0.0-3.5); SACCHAROMYCES CEREVISIAE IGG <20.0 Units (0.0-24.9); SACCHAROMYCES CEREVISIAE IGM <20.0 Units (0.0-24.9)
[2018-08-16 14:16] LABS: ATYPICAL P-ANCA <1:20 titer (Neg:<1:20); ATYPICAL pANCA <1:20 titer (Neg:<1:20); CYTOPLASMIC C-ANCA <1:20 titer (Neg:<1:20); PERINUCLEAR P-ANCA <1:20 titer (Neg:<1:20)
== END | disposition home or self-care (01) ==
LOC: LAB 07:44
PROVIDERS: ATTEND Internal Medicine Gastroenterology
DX: K51.90 Ulcerative colitis, unspecified, without complications (principal); K21.9 Gastro-esophageal reflux disease without esophagitis
CPT/HCPCS: 36415; 82607; 82728; 82746; 83520; 83540; 83550; 85044; 85651; 86140; 86256; 86671

== ENCOUNTER → 2018-08-17 | Outpatient (CLI) | payer BC ==
[2018-08-17 08:28] LABS: T4 FREE 1.12 ng/dL (0.76-1.46)
== END | disposition home or self-care (01) ==
LOC: LAB 07:41
PROVIDERS: ATTEND Specialist
DX: I47.1 Supraventricular tachycardia (principal); R94.31 Abnormal electrocardiogram [ECG] [EKG]; I11.9 Hypertensive heart disease without heart failure; E78.2 Mixed hyperlipidemia; E10.9 Type 1 diabetes mellitus without complications
CPT/HCPCS: 36415; 80061; 83036; 84439; 84443; 84481

== ENCOUNTER → 2018-09-02 | Outpatient (CLI) | payer BC | END | disposition home or self-care (01) | LOC: CT 09:07 | PROVIDERS: ATTEND Specialist | DX: I70.90 Unspecified atherosclerosis (principal); J44.9 Chronic obstructive pulmonary disease, unspecified; E78.5 Hyperlipidemia, unspecified | CPT/HCPCS: 75571 ==

== ENCOUNTER → 2018-09-02 | Outpatient (CLI) | payer BC | END | disposition home or self-care (01) | LOC: CT 09:12 | PROVIDERS: ATTEND Internal Medicine | DX: Z12.2 Encounter for screening for malignant neoplasm of respiratory organs (principal); J44.9 Chronic obstructive pulmonary disease, unspecified; Z72.0 Tobacco use | CPT/HCPCS: 71250 ==

== ENCOUNTER → 2018-10-07 | Outpatient (CLI) | payer BC ==
[2018-10-07 08:08] LABS: BASOPHILS % 0.7 % (0.0-2.0); EOSINOPHILS % 1.7 % (0.0-5.0); HEMATOCRIT. 41.1 % (36.0-48.0); HEMOGLOBIN. 13.5 g/dL (12.0-16.0); LYMPHOCYTES % 22.6 % (20.0-50.0); MEAN PLATELET VOLUME 7.9 fl (7.4-10.4); MONOCYTES % 12.4 % (2.0-8.0); NEUTROPHILS % 62.6 % (40.0-76.0); PLATELET 290 x1000/uL (130-400); RED BLOOD CELL COUNT 4.51 mill/uL (4.2-5.4); RED CELL DISTRIBUTION WIDTH 15.5 % (11.6-14.6)
[2018-10-07 08:24] LABS: CHLORIDE 103 mEq/L (98-107)
[2018-10-07 08:30] LABS: LDL CHOLESTEROL 95 mg/dL (5-100)
[2018-10-07 08:32] LABS: HDL CHOLESTEROL 65 mg/dL (40-59)
[2018-10-07 08:33] LABS: T4 FREE 1.15 ng/dL (0.76-1.46)
[2018-10-08 08:21] LABS: *CREATININE RANDOM URINE 112.8 mg/dL (Not Estab.); MICROALBUMIN RANDOM URINE 17.5 ug/mL (Not Estab.)
== END | disposition home or self-care (01) ==
LOC: LAB 07:34
PROVIDERS: ATTEND Internal Medicine Endocrinology, Diabetes & Metabolism
DX: E04.1 Nontoxic single thyroid nodule (principal); E78.5 Hyperlipidemia, unspecified; I10 Essential (primary) hypertension; E11.9 Type 2 diabetes mellitus without complications; Z79.899 Other long term (current) drug therapy
CPT/HCPCS: 36415; 80061; 82043; 82306; 82570; 83036; 84439; 84443

== ENCOUNTER → 2018-10-22 | Outpatient (CLI) | payer BC ==
[2018-10-22 09:29] LABS: BASOPHILS % 0.8 % (0.0-2.0); EOSINOPHILS % 1.8 % (0.0-5.0); HEMATOCRIT. 39.2 % (36.0-48.0); HEMOGLOBIN. 13.1 g/dL (12.0-16.0); LYMPHOCYTES % 21.3 % (20.0-50.0); MEAN CORPUSCULAR HEMOGLOBIN 30.6 pg (28.0-32.0); MEAN CORPUSCULAR VOLUME 91.3 fL (81.0-99.0); MEAN PLATELET VOLUME 8.4 fl (7.4-10.4); MONOCYTES % 12.9 % (2.0-8.0); NEUTROPHILS % 63.2 % (40.0-76.0); PLATELET 266 x1000/uL (130-400); RED CELL DISTRIBUTION WIDTH 14.6 % (11.6-14.6)
[2018-10-22 09:35] LABS: CHLORIDE 107 mEq/L (98-107)
[2018-10-22 09:42] LABS: TOTAL IRON BINDING CAPACITY 327 ug/dL (250-450)
[2018-10-22 09:43] LABS: C REACTIVE PROTEIN QUANT 8.7 mg/L (0.0-3.0)
[2018-10-22 11:47] LABS: VITAMIN B12 SERUM 1186 pg/mL (211-911)
[2018-10-22 12:21] LABS: FOLIC ACID (FOLATE) SERUM > 20.00 ng/mL (>5.38)
[2018-10-22 13:10] LABS: FERRITIN 101 ng/mL (10-291)
[2018-10-23 09:10] LABS: VITAMIN D 25-OH 45.6 ng/mL (30.0-100.0)
[2018-10-25 10:06] LABS: ANTI-MYELOPEROXIDASE AB < 9.0 U/mL (0.0-9.0); ANTI-PROTEINASE 3 ABS < 3.5 U/mL (0.0-3.5)
== END | disposition home or self-care (01) ==
LOC: LAB 08:48
PROVIDERS: ATTEND Internal Medicine Gastroenterology
DX: K51.90 Ulcerative colitis, unspecified, without complications (principal)
CPT/HCPCS: 36415; 82306; 82607; 82728; 82746; 83520; 83540; 83550; 85044; 85651; 86140; 86256; 86671

== ENCOUNTER → 2018-11-04 | Outpatient (CLI) | payer BC ==
[~2018-11-04] MED LIST changes: -ASPI-1159 PO; +ASPI-1393 PO; -LOSA50TA20 MT; +LOSA50TA41 MT
== END | disposition home or self-care (01) ==
LOC: RAD 10:16
PROVIDERS: ATTEND Internal Medicine
DX: M17.0 Bilateral primary osteoarthritis of knee (principal)
CPT/HCPCS: 73565

== ENCOUNTER → 2018-12-21 | Outpatient (CLI) | payer BC ==
[2018-12-21 09:25] LABS: BASOPHILS % 0.6 % (0.0-2.0); EOSINOPHILS % 1.7 % (0.0-5.0); HEMATOCRIT. 38.3 % (36.0-48.0); HEMOGLOBIN. 12.7 g/dL (12.0-16.0); LYMPHOCYTES % 17.4 % (20.0-50.0); MEAN CORPUSCULAR HEMOGLOBIN 30.7 pg (28.0-32.0); MEAN CORPUSCULAR VOLUME 92.4 fL (81.0-99.0); MEAN PLATELET VOLUME 7.9 fl (7.4-10.4); MONOCYTES % 10.5 % (2.0-8.0); NEUTROPHILS % 69.8 % (40.0-76.0); PLATELET 304 x1000/uL (130-400); RED BLOOD CELL COUNT 4.14 mill/uL (4.2-5.4); RED CELL DISTRIBUTION WIDTH 15.2 % (11.6-14.6)
[2018-12-21 09:58] LABS: CHLORIDE 107 mEq/L (98-107)
[2018-12-21 10:10] LABS: TOTAL IRON BINDING CAPACITY 347 ug/dL (250-450)
== END | disposition home or self-care (01) ==
LOC: RAD 08:27
PROVIDERS: ATTEND Internal Medicine Gastroenterology
DX: K21.9 Gastro-esophageal reflux disease without esophagitis (principal); K92.2 Gastrointestinal hemorrhage, unspecified; K51.90 Ulcerative colitis, unspecified, without complications
CPT/HCPCS: 36415; 82728; 83540; 83550; 85044; 85651; 86140

== ENCOUNTER → 2019-01-04 | Outpatient (CLI) | payer BC ==
[2019-01-04 08:18] LABS: BASOPHILS % 0.8 % (0.0-2.0); EOSINOPHILS % 2.2 % (0.0-5.0); HEMATOCRIT. 38.9 % (36.0-48.0); HEMOGLOBIN. 12.9 g/dL (12.0-16.0); LYMPHOCYTES % 20.9 % (20.0-50.0); MEAN CORPUSCULAR HEMOGLOBIN 30.3 pg (28.0-32.0); MEAN CORPUSCULAR VOLUME 91.2 fL (81.0-99.0); MEAN PLATELET VOLUME 8.2 fl (7.4-10.4); MONOCYTES % 10.2 % (2.0-8.0); NEUTROPHILS % 65.9 % (40.0-76.0); PLATELET 331 x1000/uL (130-400); RED BLOOD CELL COUNT 4.26 mill/uL (4.2-5.4); RED CELL DISTRIBUTION WIDTH 15.1 % (11.6-14.6)
[2019-01-04 08:19] LABS: CHLORIDE 106 mEq/L (98-107)
[2019-01-04 08:26] LABS: LDL CHOLESTEROL 113 mg/dL (5-100)
[2019-01-04 08:27] LABS: HDL CHOLESTEROL 58 mg/dL (40-59)
[2019-01-04 08:28] LABS: T4 FREE 1.11 ng/dL (0.76-1.46)
[2019-01-05 09:11] LABS: VITAMIN D 25-OH 37.7 ng/mL (30.0-100.0)
[2019-01-05 10:06] LABS: *CREATININE RANDOM URINE 109.1 mg/dL (Not Estab.)
== END | disposition home or self-care (01) ==
LOC: LAB 07:31
PROVIDERS: ATTEND Internal Medicine
DX: E55.9 Vitamin D deficiency, unspecified (principal); R76.0 Raised antibody titer
CPT/HCPCS: 36415; 80061; 82043; 82306; 82570; 83036; 84439; 84443; 85651; 86140; 86200; 86430

== ENCOUNTER → 2019-02-17 | Outpatient (CLI) | payer BC | END | disposition home or self-care (01) | LOC: MAMMO 09:14 | PROVIDERS: ATTEND Internal Medicine Endocrinology, Diabetes & Metabolism | DX: Z12.31 Encounter for screening mammogram for malignant neoplasm of breast (principal); M81.0 Age-related osteoporosis without current pathological fracture; M85.88 Other specified disorders of bone density and structure, other site | CPT/HCPCS: 77067; 77080 ==

== ENCOUNTER → 2019-04-14 | Outpatient (CLI) | payer BC ==
[2019-04-14 11:37] LABS: BASOPHILS % 0.9 % (0.0-2.0); EOSINOPHILS % 2.3 % (0.0-5.0); HEMATOCRIT. 40.9 % (36.0-48.0); HEMOGLOBIN. 13.5 g/dL (12.0-16.0); LYMPHOCYTES % 22.5 % (20.0-50.0); MEAN CORPUSCULAR HEMOGLOBIN 29.7 pg (28.0-32.0); MEAN PLATELET VOLUME 8.4 fl (7.4-10.4); MONOCYTES % 10.1 % (2.0-8.0); NEUTROPHILS % 64.2 % (40.0-76.0); PLATELET 264 x1000/uL (130-400); RED BLOOD CELL COUNT 4.54 mill/uL (4.2-5.4); RED CELL DISTRIBUTION WIDTH 15.4 % (11.6-14.6)
[2019-04-14 11:46] LABS: CHLORIDE 107 mEq/L (98-107)
[2019-04-14 11:53] LABS: LDL CHOLESTEROL 81 mg/dL (5-100)
[2019-04-14 11:54] LABS: C REACTIVE PROTEIN QUANT 9.4 mg/L (0.0-3.0); HDL CHOLESTEROL 66 mg/dL (40-59); TOTAL IRON BINDING CAPACITY 312 ug/dL (250-450)
[2019-04-14 11:56] LABS: T4 FREE 1.06 ng/dL (0.76-1.46)
[2019-04-15 08:09] LABS: *CREATININE RANDOM URINE 99.9 mg/dL (Not Estab.); MICROALBUMIN RANDOM URINE 21.3 ug/mL (Not Estab.)
[2019-04-15 09:10] LABS: VITAMIN D 25-OH 34.9 ng/mL (30.0-100.0)
[2019-04-16 15:10] LABS: ANTI-MYELOPEROXIDASE AB < 9.0 U/mL (0.0-9.0); ANTI-PROTEINASE 3 ABS < 3.5 U/mL (0.0-3.5)
[2019-04-18 10:19] LABS: SACCHAROMYCES CEREVISIAE IGG <20.0 Units (0.0-24.9); SACCHAROMYCES CEREVISIAE IGM <20.0 Units (0.0-24.9)
[2019-04-18 15:09] LABS: ATYPICAL P-ANCA <1:20 titer (Neg:<1:20); ATYPICAL pANCA <1:20 titer (Neg:<1:20); CYTOPLASMIC C-ANCA <1:20 titer (Neg:<1:20); PERINUCLEAR P-ANCA <1:20 titer (Neg:<1:20)
== END | disposition home or self-care (01) ==
LOC: LAB 10:31
PROVIDERS: ATTEND Internal Medicine Endocrinology, Diabetes & Metabolism
DX: I10 Essential (primary) hypertension (principal); E78.5 Hyperlipidemia, unspecified; E11.9 Type 2 diabetes mellitus without complications; E04.9 Nontoxic goiter, unspecified
CPT/HCPCS: 36415; 80061; 82043; 82306; 82570; 83036; 83520; 83540; 83550; 84439; 84443; 84481; 85651; 86140; 86256; 86671

== ENCOUNTER → 2019-04-19 | Outpatient (CLI) | payer BC | END | disposition home or self-care (01) | LOC: CT 11:07 | PROVIDERS: ATTEND Internal Medicine | DX: Z13.83 Encounter for screening for respiratory disorder NEC (principal); J44.9 Chronic obstructive pulmonary disease, unspecified; R06.02 Shortness of breath | CPT/HCPCS: 71250 ==

== ENCOUNTER → 2019-06-17 | Outpatient (CLI) | payer BC ==
[~2019-06-17] MED LIST changes: -ASPI-1393 PO; +ASPI-1497 PO; +SIMV-46 PO; -SIMV40TA5 PO
[2019-06-17 08:13] LABS: BASOPHILS % 0.8 % (0.0-2.0); EOSINOPHILS % 1.3 % (0.0-5.0); HEMATOCRIT. 40.2 % (36.0-48.0); HEMOGLOBIN. 13.3 g/dL (12.0-16.0); LYMPHOCYTES % 17.8 % (20.0-50.0); MEAN CORPUSCULAR VOLUME 90.7 fL (81.0-99.0); MEAN PLATELET VOLUME 8.5 fl (7.4-10.4); MONOCYTES % 11.7 % (2.0-8.0); NEUTROPHILS % 68.4 % (40.0-76.0); PLATELET 263 x1000/uL (130-400); RED BLOOD CELL COUNT 4.43 mill/uL (4.2-5.4); RED CELL DISTRIBUTION WIDTH 15.8 % (11.6-14.6)
[2019-06-17 08:21] LABS: CHLORIDE 108 mEq/L (98-107)
[2019-06-17 08:27] LABS: AMYLASE 100 IU/L (25-115)
[2019-06-17 08:28] LABS: TOTAL IRON BINDING CAPACITY 316 ug/dL (250-450)
[2019-06-17 08:31] LABS: T4 FREE 1.15 ng/dL (0.76-1.46)
[2019-06-17 08:40] LABS: FERRITIN 145 ng/mL (10-291)
[2019-06-17 08:41] LABS: FOLIC ACID (FOLATE) SERUM >20 ng/mL ng/mL (>5.38)
[2019-06-17 08:53] LABS: VITAMIN B12 SERUM 1076 pg/mL (211-911)
== END | disposition home or self-care (01) ==
LOC: LAB 07:30
PROVIDERS: ATTEND Internal Medicine Gastroenterology
DX: K57.90 Diverticulosis of intestine, part unspecified, without perforation or abscess without bleeding (principal); K21.9 Gastro-esophageal reflux disease without esophagitis
CPT/HCPCS: 36415; 80053; 82150; 82607; 82728; 82746; 83540; 83550; 84439; 84443; 85025; 85044; 85651

== ENCOUNTER → 2019-07-19 | Outpatient (CLI) | payer BC ==
[2019-07-19 08:26] LABS: BASOPHILS % 0.5 % (0.0-2.0); EOSINOPHILS % 0.8 % (0.0-5.0); HEMATOCRIT. 39.5 % (36.0-48.0); HEMOGLOBIN. 13.4 g/dL (12.0-16.0); LYMPHOCYTES % 13.2 % (20.0-50.0); MEAN CORPUSCULAR HEMOGLOBIN 30.9 pg (28.0-32.0); MEAN CORPUSCULAR VOLUME 91.1 fL (81.0-99.0); MEAN PLATELET VOLUME 8.1 fl (7.4-10.4); MONOCYTES % 9.9 % (2.0-8.0); NEUTROPHILS % 75.6 % (40.0-76.0); PLATELET 277 x1000/uL (130-400); RED BLOOD CELL COUNT 4.33 mill/uL (4.2-5.4); RED CELL DISTRIBUTION WIDTH 15.7 % (11.6-14.6)
[2019-07-19 08:52] LABS: CHLORIDE 107 mEq/L (98-107)
[2019-07-19 08:59] LABS: LDL CHOLESTEROL 89 mg/dL (5-100)
[2019-07-19 09:02] LABS: HDL CHOLESTEROL 80 mg/dL (40-59); T4 FREE 1.09 ng/dL (0.76-1.46)
== END | disposition home or self-care (01) ==
LOC: LAB 08:00
PROVIDERS: ATTEND Internal Medicine Endocrinology, Diabetes & Metabolism
DX: I10 Essential (primary) hypertension (principal); E78.5 Hyperlipidemia, unspecified; E04.1 Nontoxic single thyroid nodule; E11.9 Type 2 diabetes mellitus without complications
CPT/HCPCS: 36415; 80053; 80061; 82306; 83036; 84439; 84443; 85025

== ENCOUNTER → 2019-10-05 | Outpatient (CLI) | payer BC ==
[2019-10-05 09:49] LABS: BASOPHILS % 0.5 % (0.0-2.0); EOSINOPHILS % 1.6 % (0.0-5.0); HEMATOCRIT. 39.9 % (36.0-48.0); HEMOGLOBIN. 13.3 g/dL (12.0-16.0); LYMPHOCYTES % 19.3 % (20.0-50.0); MEAN CORPUSCULAR HEMOGLOBIN 31.1 pg (28.0-32.0); MEAN CORPUSCULAR VOLUME 93.2 fL (81.0-99.0); MEAN PLATELET VOLUME 8.4 fl (7.4-10.4); MONOCYTES % 10.3 % (2.0-8.0); NEUTROPHILS % 68.3 % (40.0-76.0); PLATELET 253 x1000/uL (130-400); RED BLOOD CELL COUNT 4.28 mill/uL (4.2-5.4); RED CELL DISTRIBUTION WIDTH 15.7 % (11.6-14.6)
[2019-10-05 09:55] LABS: CHLORIDE 107 mEq/L (98-107)
[2019-10-05 10:03] LABS: C REACTIVE PROTEIN QUANT 4.7 mg/L (0.0-3.0)
[2019-10-05 10:05] LABS: LDL CHOLESTEROL 94 mg/dL (5-100)
[2019-10-05 10:06] LABS: HDL CHOLESTEROL 69 mg/dL (40-59); T4 FREE 1.06 ng/dL (0.76-1.46)
[2019-10-07 13:06] LABS: ANTI-MYELOPEROXIDASE AB < 9.0 U/mL (0.0-9.0); ANTI-PROTEINASE 3 ABS < 3.5 U/mL (0.0-3.5); ATYPICAL P-ANCA <1:20 titer (Neg:<1:20); CYTOPLASMIC C-ANCA <1:20 titer (Neg:<1:20); PERINUCLEAR P-ANCA <1:20 titer (Neg:<1:20)
== END | disposition home or self-care (01) ==
LOC: LAB 08:39
PROVIDERS: ATTEND Internal Medicine Endocrinology, Diabetes & Metabolism
DX: E11.9 Type 2 diabetes mellitus without complications (principal); E04.1 Nontoxic single thyroid nodule; D64.9 Anemia, unspecified; E78.5 Hyperlipidemia, unspecified
CPT/HCPCS: 36415; 80053; 80061; 83036; 83520; 84439; 84443; 85025; 85651; 86140; 86256

== ENCOUNTER → 2020-01-13 | Outpatient (CLI) | payer BC ==
[2020-01-13 11:57] LABS: BASOPHILS % 0.6 % (0.0-2.0); EOSINOPHILS % 2.3 % (0.0-5.0); HEMATOCRIT. 38.9 % (36.0-48.0); HEMOGLOBIN. 12.8 g/dL (12.0-16.0); MEAN PLATELET VOLUME 8.8 fl (7.4-10.4); MONOCYTES % 10.7 % (2.0-8.0); NEUTROPHILS % 63.4 % (40.0-76.0); PLATELET 254 x1000/uL (130-400); RED BLOOD CELL COUNT 4.27 mill/uL (4.2-5.4)
[2020-01-13 12:06] LABS: CHLORIDE 107 mEq/L (98-107)
[2020-01-15 19:06] LABS: ANTI-MYELOPEROXIDASE AB < 9.0 U/mL (0.0-9.0); ANTI-PROTEINASE 3 ABS < 3.5 U/mL (0.0-3.5)
[2020-01-16 14:08] LABS: ATYPICAL P-ANCA <1:20 titer (Neg:<1:20); CYTOPLASMIC C-ANCA <1:20 titer (Neg:<1:20); PERINUCLEAR P-ANCA <1:20 titer (Neg:<1:20)
[2020-01-16 15:10] LABS: ATYPICAL pANCA <1:20 titer (Neg:<1:20)
== END | disposition home or self-care (01) ==
LOC: LAB 10:59
PROVIDERS: ATTEND Internal Medicine Gastroenterology
DX: K21.9 Gastro-esophageal reflux disease without esophagitis (principal)
CPT/HCPCS: 36415; 80053; 83520; 85025; 85651; 86140; 86256; 86671

== ENCOUNTER → 2020-02-06 | Outpatient (CLI) | payer BC ==
[2020-02-06 12:09] LABS: BASOPHILS % 0.8 % (0.0-2.0); EOSINOPHILS % 2.1 % (0.0-5.0); HEMATOCRIT. 41.2 % (36.0-48.0); HEMOGLOBIN. 13.6 g/dL (12.0-16.0); LYMPHOCYTES % 20.5 % (20.0-50.0); MEAN CORPUSCULAR VOLUME 90.8 fL (81.0-99.0); MEAN PLATELET VOLUME 8.3 fl (7.4-10.4); MONOCYTES % 9.3 % (2.0-8.0); NEUTROPHILS % 67.3 % (40.0-76.0); PLATELET 258 x1000/uL (130-400); RED BLOOD CELL COUNT 4.54 mill/uL (4.2-5.4); RED CELL DISTRIBUTION WIDTH 15.2 % (11.6-14.6)
[2020-02-06 12:15] LABS: CHLORIDE 106 mEq/L (98-107)
[2020-02-06 12:21] LABS: GAMMA GLUTAMYL TRANSPEPTIDASE 45 IU/L (7-32); LDL CHOLESTEROL 84 mg/dL (5-100)
[2020-02-06 12:23] LABS: HDL CHOLESTEROL 53 mg/dL (40-59); T4 FREE 1.15 ng/dL (0.76-1.46)
[2020-02-07 08:08] LABS: *CREATININE RANDOM URINE 105.4 mg/dL (Not Estab.); MICROALBUMIN RANDOM URINE 5.4 ug/mL (Not Estab.)
== END | disposition home or self-care (01) ==
LOC: LAB 11:29
PROVIDERS: ATTEND Internal Medicine Endocrinology, Diabetes & Metabolism
DX: E11.9 Type 2 diabetes mellitus without complications (principal); D64.9 Anemia, unspecified; E78.5 Hyperlipidemia, unspecified; E04.1 Nontoxic single thyroid nodule
CPT/HCPCS: 36415; 80053; 80061; 82043; 82570; 82977; 83036; 84439; 84443; 85025

== ENCOUNTER → 2020-03-14 | Outpatient (CLI) | payer BC | END | disposition home or self-care (01) | LOC: LAB 08:01 | PROVIDERS: ATTEND Internal Medicine Endocrinology, Diabetes & Metabolism | DX: Z20.828 Contact with and (suspected) exposure to other viral communicable diseases (principal) | CPT/HCPCS: C9803; U0003 ==

== ENCOUNTER → 2020-03-15 | Outpatient (CLI) | payer BC | END | disposition home or self-care (01) | LOC: MAMMO 08:45 | PROVIDERS: ATTEND Internal Medicine Endocrinology, Diabetes & Metabolism | DX: Z12.31 Encounter for screening mammogram for malignant neoplasm of breast (principal) | CPT/HCPCS: 77067 ==

== ENCOUNTER → 2020-04-04 | Outpatient (CLI) | payer BC ==
[2020-04-04 11:05] LABS: BASOPHILS % 0.7 % (0.0-2.0); EOSINOPHILS % 0.7 % (0.0-5.0); HEMATOCRIT. 41.2 % (36.0-48.0); HEMOGLOBIN. 13.6 g/dL (12.0-16.0); LYMPHOCYTES % 18.2 % (20.0-50.0); MEAN CORPUSCULAR HEMOGLOBIN 29.9 pg (28.0-32.0); MEAN CORPUSCULAR VOLUME 90.4 fL (81.0-99.0); MEAN PLATELET VOLUME 8.8 fl (7.4-10.4); MONOCYTES % 8.7 % (2.0-8.0); NEUTROPHILS % 71.7 % (40.0-76.0); PLATELET 258 x1000/uL (130-400); RED BLOOD CELL COUNT 4.56 mill/uL (4.2-5.4); RED CELL DISTRIBUTION WIDTH 15.3 % (11.6-14.6)
[2020-04-04 11:11] LABS: CHLORIDE 107 mEq/L (98-107)
== END | disposition home or self-care (01) ==
LOC: LAB 10:03
PROVIDERS: ATTEND Internal Medicine Gastroenterology
DX: K26.9 Duodenal ulcer, unspecified as acute or chronic, without hemorrhage or perforation (principal)
CPT/HCPCS: 36415; 80053; 85025; 85651; 86140

== ENCOUNTER → 2020-04-04 | Outpatient (CLI) | payer BC ==
[2020-04-04 11:23] LABS: T4 FREE 1.23 ng/dL (0.76-1.46)
== END | disposition home or self-care (01) ==
LOC: LAB 10:11
PROVIDERS: ATTEND Internal Medicine Endocrinology, Diabetes & Metabolism
DX: D64.9 Anemia, unspecified (principal); E78.5 Hyperlipidemia, unspecified; E04.1 Nontoxic single thyroid nodule; E55.9 Vitamin D deficiency, unspecified
CPT/HCPCS: 36415; 80061; 82306; 83036; 84439; 84443

== ENCOUNTER → 2020-06-07 | Outpatient (CLI) | payer BC ==
[2020-06-07 08:46] LABS: EOSINOPHILS % 1.8 % (0.0-5.0); HEMATOCRIT. 39.7 % (36.0-48.0); HEMOGLOBIN. 13.1 g/dL (12.0-16.0); LYMPHOCYTES % 20.4 % (20.0-50.0); MEAN CORPUSCULAR HEMOGLOBIN 29.9 pg (28.0-32.0); MEAN CORPUSCULAR VOLUME 90.9 fL (81.0-99.0); MEAN PLATELET VOLUME 8.6 fl (7.4-10.4); MONOCYTES % 13.1 % (2.0-8.0); NEUTROPHILS % 63.7 % (40.0-76.0); PLATELET 259 x1000/uL (130-400); RED BLOOD CELL COUNT 4.37 mill/uL (4.2-5.4); RED CELL DISTRIBUTION WIDTH 15.9 % (11.6-14.6)
[2020-06-07 09:14] LABS: CHLORIDE 110 mEq/L (98-107)
[2020-06-07 09:22] LABS: LDL CHOLESTEROL 88 mg/dL (5-100)
[2020-06-07 09:24] LABS: HDL CHOLESTEROL 67 mg/dL (40-59)
== END | disposition home or self-care (01) ==
LOC: LAB 08:10
PROVIDERS: ATTEND Specialist
DX: I11.9 Hypertensive heart disease without heart failure (principal); E78.2 Mixed hyperlipidemia; R94.31 Abnormal electrocardiogram [ECG] [EKG]; R73.09 Other abnormal glucose
CPT/HCPCS: 36415; 80053; 80061; 83036; 83520; 84443; 85025

== ENCOUNTER → 2020-07-18 | Outpatient (CLI) | payer BC ==
[2020-07-18 09:19] LABS: BASOPHILS % 0.7 % (0.0-2.0); EOSINOPHILS % 1.3 % (0.0-5.0); HEMATOCRIT. 41.2 % (36.0-48.0); HEMOGLOBIN. 13.6 g/dL (12.0-16.0); LYMPHOCYTES % 23.4 % (20.0-50.0); MEAN CORPUSCULAR HEMOGLOBIN 30.1 pg (28.0-32.0); MEAN CORPUSCULAR VOLUME 91.4 fL (81.0-99.0); MEAN PLATELET VOLUME 8.6 fl (7.4-10.4); MONOCYTES % 10.5 % (2.0-8.0); NEUTROPHILS % 64.1 % (40.0-76.0); PLATELET 259 x1000/uL (130-400)
[2020-07-18 09:25] LABS: CHLORIDE 105 mEq/L (98-107)
[2020-07-18 09:33] LABS: HDL CHOLESTEROL 65 mg/dL (40-59); LDL CHOLESTEROL 102 mg/dL (5-100)
[2020-07-18 09:34] LABS: T4 FREE 1.22 ng/dL (0.76-1.46)
== END | disposition home or self-care (01) ==
LOC: LAB 08:47
PROVIDERS: ATTEND Internal Medicine Endocrinology, Diabetes & Metabolism
DX: D64.9 Anemia, unspecified (principal); E78.5 Hyperlipidemia, unspecified; E04.1 Nontoxic single thyroid nodule; E55.9 Vitamin D deficiency, unspecified
CPT/HCPCS: 36415; 80053; 80061; 82306; 83036; 84439; 84443; 85025

== ENCOUNTER → 2021-01-17 | Outpatient (CLI) | payer BC ==
[2021-01-17 08:45] LABS: BASOPHILS % 0.5 % (0.0-2.0); EOSINOPHILS % 1.1 % (0.0-5.0); HEMATOCRIT. 39.1 % (36.0-48.0); HEMOGLOBIN. 12.9 g/dL (12.0-16.0); LYMPHOCYTES % 19.1 % (20.0-50.0); MEAN CORPUSCULAR HEMOGLOBIN 30.2 pg (28.0-32.0); MEAN PLATELET VOLUME 8.1 fl (7.4-10.4); NEUTROPHILS % 70.3 % (40.0-76.0); PLATELET 274 x1000/uL (130-400); RED BLOOD CELL COUNT 4.29 mill/uL (4.2-5.4); RED CELL DISTRIBUTION WIDTH 15.5 % (11.6-14.6)
[2021-01-17 08:55] LABS: CHLORIDE 108 mEq/L (98-107)
[2021-01-17 09:03] LABS: C REACTIVE PROTEIN QUANT 5.4 mg/L (0.0-3.0)
[2021-01-21 10:06] LABS: SACCHAROMYCES CEREVISIAE IGG <20.0 Units (0.0-24.9)
[2021-01-22 13:07] LABS: ATYPICAL pANCA <1:20 titer (Neg:<1:20)
[2021-01-23 04:08] LABS: SACCHAROMYCES CEREVISIAE IGM <20.0 Units (0.0-24.9)
== END | disposition home or self-care (01) ==
LOC: LAB 08:02
PROVIDERS: ATTEND Internal Medicine Gastroenterology
DX: K21.9 Gastro-esophageal reflux disease without esophagitis (principal)
CPT/HCPCS: 36415; 80053; 85025; 85651; 86140; 86256; 86671

== ENCOUNTER → 2021-03-08 | Outpatient (CLI) | payer BC ==
[~2021-03-08] MED LIST changes: +LOSA50TA41 PO; +PEN250 PO
[2021-03-08 08:26] LABS: BASOPHILS % 0.7 % (0.0-2.0); EOSINOPHILS % 0.6 % (0.0-5.0); HEMATOCRIT. 42.3 % (36.0-48.0); MEAN CORPUSCULAR HEMOGLOBIN 29.8 pg (28.0-32.0); MEAN CORPUSCULAR VOLUME 89.7 fL (81.0-99.0); MEAN PLATELET VOLUME 8.3 fl (7.4-10.4); MONOCYTES % 8.4 % (2.0-8.0); NEUTROPHILS % 71.3 % (40.0-76.0); PLATELET 314 x1000/uL (130-400); RED BLOOD CELL COUNT 4.71 mill/uL (4.2-5.4); RED CELL DISTRIBUTION WIDTH 15.6 % (11.6-14.6)
[2021-03-08 09:06] LABS: CHLORIDE 106 mEq/L (98-107)
[2021-03-08 09:14] LABS: LDL CHOLESTEROL 91 mg/dL (5-100)
[2021-03-08 09:15] LABS: HDL CHOLESTEROL 70 mg/dL (40-59); T4 FREE 1.17 ng/dL (0.76-1.46)
[2021-03-09 07:07] LABS: VITAMIN D 25-OH 38.3 ng/mL (30.0-100.0)
== END | disposition home or self-care (01) ==
LOC: LAB 07:37
PROVIDERS: ATTEND Internal Medicine Endocrinology, Diabetes & Metabolism
DX: I10 Essential (primary) hypertension (principal); E78.00 Pure hypercholesterolemia, unspecified; R73.9 Hyperglycemia, unspecified
CPT/HCPCS: 36415; 80053; 80061; 82306; 83036; 84439; 84443; 85025; 85651

== ENCOUNTER 2021-03-12 19:08 | Inpatient (IN) | payer BC ==
[~2021-03-12] VITALS: Ht 165.1 cm; Wt 115.7 kg
[~2021-03-12 19:08] MED LIST changes: -LOSA50TA41 PO; -PEN250 PO
[2021-03-12] MEDS ORDERED: ACETAMINOPHEN 325MG TABLET PO ONE (19:30)
[2021-03-12 22:01] LABS: BASOPHILS % 0.6 % (0.0-2.0); EOSINOPHILS % 1.4 % (0.0-5.0); HEMATOCRIT. 38.6 % (36.0-48.0); HEMOGLOBIN. 12.7 g/dL (12.0-16.0); LYMPHOCYTES % 19.2 % (20.0-50.0); MEAN CORPUSCULAR HEMOGLOBIN 30.1 pg (28.0-32.0); MEAN CORPUSCULAR VOLUME 91.3 fL (81.0-99.0); MEAN PLATELET VOLUME 8.8 fl (7.4-10.4); MONOCYTES % 10.8 % (2.0-8.0); PLATELET 257 x1000/uL (130-400); RED BLOOD CELL COUNT 4.23 mill/uL (4.2-5.4); RED CELL DISTRIBUTION WIDTH 15.3 % (11.6-14.6)
[2021-03-12 22:05] LABS: CHLORIDE 110 mEq/L (98-107)
[2021-03-12] MEDS ORDERED: CLONIDINE 0.1MG TABLET PO PRN (23:00)
[2021-03-12] MEDS ORDERED: NALOXONE HCL 0.4MG/ML VIAL IV PRN (23:00)
[2021-03-12] MEDS ORDERED: HYDRALAZINE 20MG/ML VIAL IV PRN (23:00)
[2021-03-12] MEDS ORDERED: GUAIFENESIN 200MG/10ML SUGAR FREE UDC PO PRN (23:00)
[2021-03-12] MEDS ORDERED: MORPHINE SULFATE 2 MG/ML CPJ (NOT FOR IM USE) IV PRN (23:00)
[2021-03-12] MEDS ORDERED: ONDANSETRON HCL 4MG/2ML INJ IV PRN (23:00)
[2021-03-12] MEDS ORDERED: ACETAMINOPHEN 325MG TABLET PO PRN (23:00)
[2021-03-12] MEDS ORDERED: MAGNESIUM/ALUMINUM HYDROXIDE/SIMETHICONE 30ML UDC PO PRN (23:00)
[2021-03-12] MEDS ORDERED: DIPHENHYDRAMINE 50MG/ML VIAL IV PRN (23:00)
[2021-03-12] MEDS ORDERED: IPRATROPIUM/ALBUTEROL 0.5-3(2.5)MG/3ML NEB HHN PRN (23:00)
[2021-03-12] MEDS ORDERED: ENOXAPARIN 30MG/0.3ML SYR SUBCUT SCH (23:00)
[2021-03-12] MEDS ORDERED: DOCUSATE SODIUM 100MG CAPSULE PO PRN (23:00)
[2021-03-12] MEDS ORDERED: ENOXAPARIN 40MG/0.4ML SYR SUBCUT SCH (23:00)
[2021-03-12] MEDS ORDERED: LORAZEPAM 2MG/ML CPJ IV PRN (23:00)
[2021-03-12] MEDS ORDERED: HYDROCODONE/ACETAMINOPHEN 5/325MG TABLET PO PRN (23:00)
[2021-03-13] MEDS ORDERED: ENOXAPARIN 30MG/0.3ML SYR SUBCUT SCH (01:00)
[2021-03-13] MEDS: SODIUM CHLORIDE 0.9% INJ 3ML FLUSH IVF SCH ×2 (01:35→15:10)
[2021-03-13 02:00] VITALS: BP 143/78
[2021-03-13] MEDS ORDERED: LOSA50TA41 PO (02:11)
[2021-03-13] MEDS ORDERED: PEN250 PO (02:11)
[2021-03-13 06:43] LABS: BASOPHILS % 0.5 % (0.0-2.0); EOSINOPHILS % 1.9 % (0.0-5.0); HEMATOCRIT. 38.2 % (36.0-48.0); HEMOGLOBIN. 12.5 g/dL (12.0-16.0); LYMPHOCYTES % 22.6 % (20.0-50.0); MEAN CORPUSCULAR HEMOGLOBIN 30.1 pg (28.0-32.0); MEAN CORPUSCULAR VOLUME 91.9 fL (81.0-99.0); MONOCYTES % 12.4 % (2.0-8.0); NEUTROPHILS % 62.6 % (40.0-76.0); PLATELET 246 x1000/uL (130-400); RED BLOOD CELL COUNT 4.16 mill/uL (4.2-5.4); RED CELL DISTRIBUTION WIDTH 15.2 % (11.6-14.6)
[2021-03-13 06:47] LABS: CHLORIDE 108 mEq/L (98-107)
[2021-03-13] MEDS ORDERED: MESALAMINE 400 MG CAPSULE.DR PO SCH (09:00)
[2021-03-13] MEDS ORDERED: DILTIAZEM HCL 120MG CAPSULE CD 24HR PO SCH (09:00)
[2021-03-13 12:00] VITALS: BP 119/60
[2021-03-13] MEDS ORDERED: GABAPENTIN 100MG CAPSULE PO SCH (14:00)
[2021-03-13 17:13] VITALS: BP 119/60
[2021-03-13] MEDS ORDERED: ATORVASTATIN CALCIUM 20MG TABLET PO SCH (21:00)
== END 2021-03-13 17:45 | disposition home health service (06) | DRG 554 ==
LOC: ER 19:08 → 8WST 22:38 → ENRESERV 23:20 → CANRESERV 23:20 → ENRESERV 23:40
PROVIDERS: ADMIT Internal Medicine; ATTEND Internal Medicine
DX: M17.0 Bilateral primary osteoarthritis of knee (principal); I47.1 Supraventricular tachycardia; E46 Unspecified protein-calorie malnutrition; Z68.41 Body mass index [BMI] 40.0-44.9, adult; I10 Essential (primary) hypertension; J43.9 Emphysema, unspecified; E66.01 Morbid (severe) obesity due to excess calories; E78.00 Pure hypercholesterolemia, unspecified; E04.1 Nontoxic single thyroid nodule; K57.30 Diverticulosis of large intestine without perforation or abscess without bleeding; K76.89 Other specified diseases of liver; Z20.822 Contact with and (suspected) exposure to COVID-19; E78.5 Hyperlipidemia, unspecified; M48.02 Spinal stenosis, cervical region; M48.061 Spinal stenosis, lumbar region without neurogenic claudication; E11.9 Type 2 diabetes mellitus without complications; Z83.3 Family history of diabetes mellitus; Z79.82 Long term (current) use of aspirin; Z79.899 Other long term (current) drug therapy; Z79.1 Long term (current) use of non-steroidal anti-inflammatories (NSAID); Z82.49 Family history of ischemic heart disease and other diseases of the circulatory system; Z80.42 Family history of malignant neoplasm of prostate; Z82.0 Family history of epilepsy and other diseases of the nervous system; Z82.3 Family history of stroke; Z90.710 Acquired absence of both cervix and uterus
CPT/HCPCS: 36415; 73562; 80048; 80053; 85025; 87426; 93970; 97162; 99285; J1650

== ENCOUNTER → 2021-03-19 | Outpatient (CLI) | payer BC ==
[~2021-03-19] MED LIST changes: +ACET-2708 PO; +CALC-900 MT; +DILT120C11 PO; +FERR325T23 MT; +GABA100C MT; +HYDR-4346 PO; +LIP40 MT; +LOSA25TA26 MT; -LOSA50TA41 MT; +LOSA50TA41 PO; -MESA0.37 PO; +MESA500C PO; +PEN250 PO; -UMEC1DIS IH
== END | disposition home or self-care (01) ==
LOC: MAMMO 10:09
PROVIDERS: ATTEND Internal Medicine Endocrinology, Diabetes & Metabolism
DX: Z12.31 Encounter for screening mammogram for malignant neoplasm of breast (principal); N63.10 Unspecified lump in the right breast, unspecified quadrant; N63.21 Unspecified lump in the left breast, upper outer quadrant
CPT/HCPCS: 77067

== ENCOUNTER → 2021-03-21 | Outpatient (CLI) | payer BC ==
[2021-03-21 08:51] LABS: BASOPHILS % 0.4 % (0.0-2.0); EOSINOPHILS % 1.7 % (0.0-5.0); HEMATOCRIT. 40.3 % (36.0-48.0); HEMOGLOBIN. 13.3 g/dL (12.0-16.0); MEAN CORPUSCULAR HEMOGLOBIN 29.9 pg (28.0-32.0); MEAN CORPUSCULAR VOLUME 90.5 fL (81.0-99.0); MEAN PLATELET VOLUME 8.7 fl (7.4-10.4); MONOCYTES % 12.4 % (2.0-8.0); NEUTROPHILS % 61.5 % (40.0-76.0); PLATELET 282 x1000/uL (130-400); RED BLOOD CELL COUNT 4.46 mill/uL (4.2-5.4); RED CELL DISTRIBUTION WIDTH 15.5 % (11.6-14.6)
[2021-03-21 09:08] LABS: CHLORIDE 107 mEq/L (98-107)
[2021-03-21 09:17] LABS: HDL CHOLESTEROL 63 mg/dL (40-59); LDL CHOLESTEROL 84 mg/dL (5-100); T4 FREE 1.09 ng/dL (0.76-1.46)
[2021-03-21 09:39] LABS: VITAMIN B12 SERUM 1402 pg/mL (211-911)
== END | disposition home or self-care (01) ==
LOC: LAB 08:16
PROVIDERS: ATTEND Specialist
DX: E11.9 Type 2 diabetes mellitus without complications (principal); I11.9 Hypertensive heart disease without heart failure; E66.3 Overweight
CPT/HCPCS: 36415; 80053; 80061; 82306; 82607; 83036; 84439; 84443; 84481; 85025

== ENCOUNTER → 2022-06-26 | Outpatient (CLI) | payer MEDICARE | END | disposition home or self-care (01) | LOC: MAMMO 12:57 | PROVIDERS: ATTEND Internal Medicine Endocrinology, Diabetes & Metabolism | DX: Z12.31 Encounter for screening mammogram for malignant neoplasm of breast (principal) | CPT/HCPCS: 77067 ==

== ENCOUNTER → 2023-08-18 | Outpatient (CLI) | payer MEDICARE ==
[~2023-08-18] MED LIST changes: -ACET-2708 MT; -ACET-2708 PO; -ASPI-1497 PO; -CALC-719 MT; -CALC-900 MT; -DILT120C11 PO; -FERR325T23 MT; -GABA-529 MT; -GABA100C MT; -HYDR-4346 PO; -LACT1CAP68 PO; -LOSA25TA26 MT; -LOSA50TA41 PO; -MESA500C PO; +MESA500C5 PO; -MULT-1146 MT; -PEN250 PO; -PRED1TAB PO; -SIMV-46 PO; -TRAM50TA3 MT; -VITA1CAP47 PO
== END | disposition home or self-care (01) ==
LOC: MAMMO 08:41
PROVIDERS: ATTEND Internal Medicine Endocrinology, Diabetes & Metabolism
DX: Z12.31 Encounter for screening mammogram for malignant neoplasm of breast (principal); N63.11 Unspecified lump in the right breast, upper outer quadrant
CPT/HCPCS: 77063; 77067

== ENCOUNTER → 2024-11-23 | Outpatient (CLI) | payer MEDICARE ==
[~2024-11-23] MED LIST changes: +ATOR40TA70 PO; +CALC-1139 MT; -DILT120T2 MT; +DILT60TA35 PO; -LIP40 MT; +colace PO; +losartan potassium PO; +multivitamin PO
== END | disposition home or self-care (01) ==
LOC: MAMMO 09:28
PROVIDERS: ATTEND Internal Medicine Endocrinology, Diabetes & Metabolism
DX: Z12.31 Encounter for screening mammogram for malignant neoplasm of breast (principal)
CPT/HCPCS: 77063; 77067